=== PATIENT | female | born 1960 | race Caucasian/White ===

== ENCOUNTER 2016-10-30 10:59 | Outpatient (CLI) | payer BC | END 2016-10-30 11:00 | disposition home or self-care (01) | DX: R05 Cough (principal); R91.8 Other nonspecific abnormal finding of lung field ==

== ENCOUNTER 2016-11-10 12:38 | Outpatient (CLI) | payer BC | END 2016-11-10 12:39 | disposition home or self-care (01) | DX: J84.10 Pulmonary fibrosis, unspecified (principal); R91.8 Other nonspecific abnormal finding of lung field ==

== ENCOUNTER 2017-09-03 12:52 | Outpatient (CLI) | payer BC | END 2017-09-03 12:53 | disposition EMS.NT | LOC: EMS 12:52 | PROVIDERS: ATTEND Surgery | DX: R07.9 Chest pain, unspecified (principal) ==

== ENCOUNTER 2018-09-09 15:54 | Inpatient (IN) | payer BC ==
[2018-09-09 16:23] LABS: BILIRUBIN,URINE NEGATIVE (NEGATIVE); GLUCOSE, URINE (UA) NEGATIVE (NEGATIVE); KETONES,URINE (UA) NEGATIVE (NEGATIVE); LEUKOCYTE ESTERASE, URINE NEGATIVE (NEGATIVE); NITRITE,URINE NEGATIVE (NEGATIVE); OCCULT BLOOD,URINE SMALL (NEGATIVE); PROTEIN,URINE NEGATIVE (NEGATIVE); UROBILINOGEN,URINE 0.2 (NORMAL) E.U./dL (NORMAL)
[2018-09-09 16:30] LABS: CLARITY,URINE CLEAR (CLEAR)
[2018-09-09 16:31] LABS: BACTERIA,URINE Many /HPF (None Seen); SQUAMOUS EPITHELIAL CELL,UR MANY Squamous (<= Few)
[2018-09-09 16:53] LABS: BASOPHILS % (AUTO) 0.4 %; EOSINOPHILS % (AUTO) 0.4 %; HGB - HEMOGLOBIN 13.4 g/dL (12.0-16.0); LYMPHOCYTES # (AUTO) 1.3 10^3/uL (1.5-3.5); MEAN CORPUSCULAR HEMOGLOBIN 29.4 pg (27.0-31.0); MEAN CORPUSCULAR HGB CONC 33.1 g/dL (32.0-36.0); MEAN CORPUSCULAR VOLUME 88.8 fL (81.0-99.0); MEAN PLATELET VOLUME 7.8 fL (7.9-10.8); MONOCYTES # (AUTO) 0.8 10^3/uL (0.0-1.0); MONOCYTES % (AUTO) 7.6 %; NEUTROPHILS # (AUTO) 8.5 10^3/uL (1.5-6.6); NEUTROPHILS % (AUTO) 79.6 %; PLT - PLATELET COUNT 206 10^3/uL (130-450); RED BLOOD COUNT 4.56 10^6/uL (4.20-5.40); RED CELL DISTRIBUTION WIDTH 14.1 % (12.0-15.0); WHITE BLOOD COUNT 10.6 x10^3/uL (4.8-10.8)
--- NOTE | 2018-09-09 17:06 | ED Physician Documentation ---
PD HPI ABD PAIN - Stated complaint Stated Complaint: RUQ/RLQ PX & FEVER - Chief complaint Chief Complaint: Abd Pain - History obtained from History obtained from: Patient - History of Present Illness Timing - onset: Last night Timing - details: Abrupt onset, Still present, Intermittant Pain level max: 6 Pain level now: 6 Quality: Aching, Sharp Location: RUQ, RLQ Improved by: Laying still Worsened by: Moving Associated symptoms: Fever (Tactile fever last night), Nausea. No: Vomiting, Diarrhea, Constipation, Dysuria, Hematuria, Chest pain, Dizzy, Near syncope / syncope, Vaginal bleeding, Vaginal dc Similar symptoms before: Has not had sx before Recently seen: Not recently seen - Additional information Additional information: 58-year-old female with no past medical or surgical history here with complaint of right upper quadrant and right lower quadrant abdominal pain which started last night associated with tactile fever last night and nausea today. Patient stated it is worse when she bends over. Denies any trauma, travel or recent illness. Review of Systems Ten Systems: 10 systems reviewed and negative Constitutional: reports: Fever. denies: Chills, Myalgias Cardiac: denies: Chest pain / pressure Respiratory: denies: Dyspnea GI: reports: Abdominal Pain, Nausea. denies: Vomiting, Constipation, Diarrhea : denies: Dysuria, Frequency Skin: denies: Rash Musculoskeletal: denies: Back pain Neurologic: denies: Generalized weakness PD PAST MEDICAL HISTORY - Past Surgical History Past Surgical History: Yes - Present Medications Home Medications: Ambulatory Orders Medication Instructions Recorded Confirmed Progesterone,Micronized 200 mg PO 09/09/18 [Prometrium] - Allergies Allergies/Adverse Reactions: Allergies Allergy/AdvReac Type Severity Reaction Status Date / Time erythromycin lactobionate * Allergy Unknown Verified 09/09/18 16:00 [From Erythrocin] - Social History Does the pt smoke?: No Smoking Status: Never smoker Does the pt drink ETOH?: No Does the pt have substance abuse?: No - Immunizations Immunizations are current?: Yes PD ED PE NORMAL - Vitals Vital signs reviewed: Yes - General General: Alert and oriented X 3, No acute distress, Well developed/nourished - HEENT HEENT: EOMI, Moist mucous membranes - Neck Neck: Supple, no meningeal sign - Cardiac Cardiac: RRR, No murmur - Respiratory Respiratory: No respiratory distress, Clear bilaterally - Abdomen Abdomen: Normal bowel sounds, Soft, Non distended, Other (Mild tenderness to palpation of the right upper quadrant and right lower quadrant. Negative Chin's. Negative McBurney's.) - Back Back: No CVA TTP - Derm Derm: Warm and dry - Extremities Extremities: No deformity - Neuro Neuro: Alert and oriented X 3 - Psych Psych: Normal mood, Normal affect Results - Vitals Vitals: Vital Signs - 24 hr 09/09/18 15:57 Temperature 37.7 C H Heart Rate 99 Respiratory 20 Rate Blood Pressure 152/77 H O2 Saturation 99 Oxygen O2 Source Room air - Labs Labs: Laboratory Tests 09/09/18 09/09/18 09/09/18 16:08 16:47 16:47 WBC 10.6 RBC 4.56 Hgb 13.4 Hct 40.5 MCV 88.8 MCH 29.4 MCHC 33.1 RDW 14.1 Plt Count 206 MPV 7.8 L Neut # (Auto) 8.5 H Lymph # (Auto) 1.3 L Hinds # (Auto) 0.8 Eos # (Auto) 0.0 Baso # (Auto) 0.0 Absolute Nucleated RBC 0.00 Nucleated RBC % 0.0 Sodium 130 L Potassium 4.0 Chloride 100 L Carbon Dioxide 22 Anion Gap 8.0 BUN 8 Creatinine 0.7 Estimated GFR (MDRD) 87 L Glucose 100 Calcium 9.0 Total Bilirubin 1.1 H AST 18 ALT 15 Alkaline Phosphatase 37 L Total Protein 7.9 Albumin 4.3 Globulin 3.6 Albumin/Globulin Ratio 1.2 Lipase 24 Urine Color YELLOW Urine Clarity CLEAR Urine pH 7.0 Ur Specific [place] <=1.005 Urine Protein NEGATIVE Urine Glucose (UA) NEGATIVE Urine Ketones NEGATIVE Urine Occult Blood SMALL H Urine Nitrite NEGATIVE Urine Bilirubin NEGATIVE Urine Urobilinogen 0.2 (NORMAL) Ur Leukocyte Esterase NEGATIVE Urine RBC 6-10 H Urine WBC 4-5 Ur Squamous Epith Cells MANY Squamous H Urine Bacteria Many H Ur Microscopic Review INDICATED Urine Culture Comments NOT INDICATED PD MEDICAL DECISION MAKING - ED course Complexity details: reviewed results, re-evaluated patient (1919Patient inform of general surgeon consult who stated no surgery required at this time.), considered differential (Cholecystitis, cholelithiasis, appendicitis, UTI, muscle strain), d/w patient (1902Patient informed of test results including CAT scan results and agreed to plan of admission.), d/w PMD (963ase discussed with hospitalist . Inform of test results and general surgeon consult. She will admit the patient to [facility] d/w fashion consultant (Spoke to general surgeon energy conservation director . Case discussed including CT scan result. He stated this case will not require any surgical intervention but patient can be admitted for IV antibiotics and he can be consulted by the hospitalist.) Departure - Departure Disposition: 66 [facility] DC/Xfer Clinical Impression: Diverticulitis of gastrointestinal tract, Perforated bowel Abdominal pain Qualifiers: Abdominal location: right upper quadrant Qualified Code(s): R10.11 - Right upper quadrant pain Condition: Stable
[2018-09-09 17:10] LABS: ALBUMIN 4.3 g/dL (3.2-5.5); ALBUMIN/GLOBULIN RATIO 1.2 (1.0-2.2); BILIRUBIN,TOTAL 1.1 mg/dL (0.2-1.0); CREATININE 0.7 mg/dL (0.4-1.0); TOTAL PROTEIN 7.9 g/dL (6.7-8.2)
[2018-09-09] MEDS ORDERED: IOPAMIDOL-300 100 ML VIAL ONE (17:35)
[2018-09-09] MEDS ORDERED: IOPAMIDOL-300 100 ML VIAL IVP ONE (18:06)
--- NOTE | 2018-09-09 18:40 | CT Report ---
Reason: PAIN Procedure Date: 09/09/2018 Accession Number: [id number] / [id number] Procedure: CT - Abdomen/Pelvis W/ CPT Code: FULL RESULT: EXAM: CT ABDOMEN AND PELVIS WITH CONTRAST. EXAM DATE: 09/09/2018 05:53 PM. CLINICAL HISTORY: Right-sided abdominal pain and nausea since yesterday. COMPARISONS: None. TECHNIQUE: Routine helical CT imaging was performed through the abdomen and pelvis. IV contrast: 100 mL ISOVUE 300. Enteric contrast: No. Reconstructions: Coronal and sagittal. In accordance with CT protocol optimization, one or more of the following dose reduction techniques were utilized for this exam: automated exposure control, adjustment of mA and/or KV based on patient size, or use of iterative reconstructive technique. FINDINGS: Lung Bases: Unremarkable. Liver: Normal. No masses. Gallbladder/Bile Ducts: Unremarkable. Spleen: Normal. Pancreas: Normal. Adrenal Glands: Normal. Kidneys: Normal. No masses or hydronephrosis. Peritoneal Cavity/Bowel: Diverticula of the colon. Moderate wall thickening and several large inflamed diverticuli over an 8 cm segment involving the superior half of the ascending colon. Less than 1 cc free air seen in this region, sagittal image 66, coronal image 39. No extraluminal abscess. Marked amount of adjacent mesenteric and omental edema. Small amount of adjacent linear fluid. Large and small bowel normal caliber. The appendix is well visualized and normal. Pelvic Organs: Mildly enlarged uterus due to multiple leiomyomata. No free fluid nor adnexal mass lesions. No stones in the small caliber urinary bladder. Vasculature: No aneurysms or other significant abnormality. Bones: No significant abnormality. Other: None. IMPRESSION: 1. Abnormal ascending colon consistent with diverticulitis. Less than 1 cc of air adjacent to such indicating focal contained perforation. Full differential of the abnormal findings would also include colitis, pseudomembranous colitis, inflammatory bowel disease, ischemia, atypical for nonobstructing malignancy. 2. Enlarged leiomyomatous uterus. RADIA The above findings were discussed with Roxie Faustin by Dr. Marily Frey at 18:39 hrs on 09/09/18.
[2018-09-09] MEDS ORDERED: SODIUM CHLORIDE 0.9% 1,000 ML IV ONE (19:09)
[2018-09-09] MEDS ORDERED: PIPERACILLIN/TAZOBACTAM 4.5 GM in SODIUM CHLORIDE 0.9% MINIBAG 100 ML IV STA (19:09)
[2018-09-09] MEDS ORDERED: HYDROmorphone 0.5 MG/0.5 ML SYRINGE IVP PRN (19:48)
[2018-09-09] MEDS ORDERED: ONDANSETRON 4 MG/2 ML VIAL IVP PRN (19:48)
[2018-09-09] MEDS ORDERED: ONDANSETRON ODT 4 MG TABLET TL PRN (19:48)
[2018-09-09] MEDS ORDERED: SODIUM CHLORIDE FLUSH 0.9% 10 ML SYRINGE IVP PRN (19:48)
[2018-09-09] MEDS: SODIUM CHLORIDE 0.9% 1,000 ML IV SCH (21:00)
--- NOTE | 2018-09-09 22:53 | HISTORY & PHYSICAL EXAMINATION ---
Chief Complaint - Chief Complaint Chief Complaint: Abdominal Pain History of Present Illness - Admitted From Admitted From:: ER - History Obtained From Records Reviewed: Yes History obtained from: Patient Exam Limitations: None - History of Present Illness HPI Comment/Other: 58 yo female with no pmh presents with abdominal pain that started 1 day prior at 1800. Pain described as sharp pain in the Right Upper/Lower Quadrant and Right Flank. Pt states the pain was sudden onset and has been constant with exacerbation by bending over. Pt states her temperature was 102.4 last night with sustaining >102 today in her office. Patient states she has had one surgery at 28 for endometriosis, but has never experience similar abdominal pain. Patient states her last po was at 0800 today and had a normal bowel movement this morning. Pt states the pain started 1 day prior with resulting nausea. Patient denies vomiting, chest pain, cough, fever, recent illness, diarrhea, hematochezia, dysuria, hematemesis, change in urinary frequency, change in bowel movements. Pt does have recent travel to [facility] [address] abdomen reviewed with patient and she understands treatment plan. History - Past Medical History Cardiovascular: reports: None Respiratory: reports: None Neuro: reports: None (Pineal Gland Cyst), Other Endocrine/Autoimmune: reports: None GI: reports: None CREDIT ASSOCIATE: reports: Endometriosis (surgery at 28), Other ( with leiomyoma ) : reports: None HEENT: reports: None Psych: reports: None Musculoskeletal: reports: None Derm: reports: None MRSA Hx?: No - Past Surgical History Other past surgical history: laser ablation for endometriosis - Family & Social History Family History: Mother: Alive and Well, Father: Alive and Well, Diabetes, Type 2, Brother: , CAD Living arrangement: At home Living Situation: Alone Social History Notes: 58 yo female that lives on [address] [facility] [facility]. 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 She smokes socially 1 to 2 cigarettes a month, drinks socially and denies any illicit drug usage. - Substance History Use: Uses substance without health or social issues: Tobacco, Alcohol Abuse: Recurrent use of substance despite neg consequences: NONE Dependence: Experiences withdrawal or developed tolerances: NONE - POLST Patient has POLST: No POLST Status: Full Code Meds/Allgy - Home Medications Home Medications: Ambulatory Orders Medication Instructions Recorded Confirmed Progesterone,Micronized 200 mg PO 09/09/18 [Prometrium] - Allergies Allergies/Adverse Reactions: Allergies Allergy/AdvReac Type Severity Reaction Status Date / Time erythromycin lactobionate * Allergy Unknown Verified 09/09/18 16:00 [From Erythrocin] Review of Systems - Constitutional Constitutional: reports: Fever (102.4 noted at home). denies: Fatigue, Chills, Weakness - Eyes Eyes: denies: Pain, Blurred vision - Ears, Nose & Throat Ears, Nose & Throat: denies: Hearing loss, Tinnitus, Sore throat - Cardiovascular Cariovascular: reports: Lightheadedness (one episode at work while sitting 1 day prior that lasted a few seconds). denies: Irregular heart rate, Palpitations, Chest pain, Syncope - Respiratory Respiratory: denies: Cough, Sputum production, Wheezing, SOB at rest, SOB with exertion - Gastrointestinal Gastrointestinal: reports: Abdominal pain (RLQ, RUQ, Flank Pain), Nausea. denies: Abdominal distention, Constipation, Diarrhea, Change in bowel habits, Rectal bleeding, Black stools, Bloody stools, Vomiting, Bile emesis, Jatinder blood emesis, Coffee grounds emesis - Genitourinary Genitourinary: denies: Dysuria, Frequency, Urgency, Incontinence - Musculoskeletal Musculoskeletal: denies: Muscle pain, Back pain, Muscle aches - Integumentary Integumentary: denies: Rash - Neurological Neurological: denies: General weakness, Headache - Psychiatric Psychiatric: denies: Depression - Endocrine Endocrine: denies: Polyuria - Hematologic/Lymphatic Hematologic/Lymphatic: denies: Anemia, Bruising, Petechiae - All Other Systems All Other Systems: reports: Reviewed and negative Prior Level of Functionality: Pt is active and completes ADL. She does not require any ambulatory assistance. 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 She is and lives alone. She has a solid support system of friends and colleagues. She has numerous activities including animal communication. Exam - Vital Signs Reviewed Vital Signs: Yes Vital Signs: Vital Signs x48h Temp Pulse Pulse Resp BP BP Pulse Ox 09/09/18 20:35 37.6 C H 77 14 114/62 99 09/09/18 20:06 37.6 C H 90 18 120/69 96 09/09/18 15:57 37.7 C H 99 20 152/77 H 99 - Physical Exam General Appearance: positive: No acute distress, Alert Eyes Bilateral: positive: Normal inspection ENT: positive: ENT inspection nml Neck: positive: Nml inspection Respiratory: positive: Chest non-tender, No respiratory distress, Breath sounds nml, Wheezes, Rales Cardiovascular: positive: Regular rate & rhythm, No murmur, No gallop Peripheral Pulses: positive: 2+ Abdomen: positive: Nml bowel sounds, Tenderness (RUQ, RLQ, R Flank Pain). negative: Non-tender, No distention Rectal: negative: Black stool, Bloody stool Back: positive: Nml inspection Skin: positive: Color nml, No rash, Warm, Dry Extremities: positive: Non-tender, Full ROM, Nml appearance Neurologic/Psychiatric: positive: Oriented x3, Mood/affect nml Conclusion/Plan - Problem List (1) Diverticulitis of gastrointestinal tract Conclusion/Plan: CT Abdomen reveals: Abnormal ascending colon consistent with diverticulitis. Less than 1 cc of air adjacent to such indicating focal contained perforation. Full differential of the abnormal findings would also include colitis, pseudomembranous colitis, inflammatory bowel disease, ischemia, atypical for nonobstructing malignancy. Plan: NPO IVF Blood culture and daily labs including CBC Oxycodone for pain Pip/Tazo abx coverage with sensitivities based on culture (2) Perforated bowel Conclusion/Plan: CT Abdomen reveals: Abnormal ascending colon consistent with diverticulitis. Less than 1 cc of air adjacent to such indicating focal contained perforation. Full differential of the abnormal findings would also include colitis, pseudomembranous colitis, inflammatory bowel disease, ischemia, atypical for nonobstructing malignancy. Plan: Continue to monitor vitals, cbc, lactic acid and abdominal tenderness NPO and IVF Abx coverage with Pip/Tazo (3) Diffuse leiomyomatosis of uterus Conclusion/Plan: CT Abdomen and Pelvis: Enlarged leiomyomatous uterus. Pt has been followed with [facility] with progesterone treatment outpatient to control menorrhagia. Plan: Continue outpatient treatment Monitor CBC - Lab Results Lab results reviewed: Yes Fish Bones: 09/09/18 16:47 09/09/18 16:47 - Diagnostic Imaging Results Diagnostic Imaging Results: positive: Final report reviewed Diagnostic Imaging Results Comments: Final Report PT NAME: LONNIE DOUGHERTY MR#: [id number] REG ER/ED AGE: 58 CI DT/TM: 09/09/18 PCP: : 1960 ATT: SEX: F ORD: Roxie Faustin DO EXAM: [id number] CT/ABPEW ([id number]) Reason: PAIN Procedure Date: 09/09/2018 Accession Number: [id number] / [id number] Procedure: CT - Abdomen/Pelvis W/ CPT Code: FULL RESULT: EXAM: CT ABDOMEN AND PELVIS WITH CONTRAST. EXAM DATE: 09/09/2018 05:53 PM. CLINICAL HISTORY: Right-sided abdominal pain and nausea since yesterday. COMPARISONS: None. TECHNIQUE: Routine helical CT imaging was performed through the abdomen and pelvis. IV contrast: 100 mL ISOVUE 300. Enteric contrast: No. Reconstructions: Coronal and sagittal. In accordance with CT protocol optimization, one or more of the following dose reduction techniques were utilized for this exam: automated exposure control, adjustment of mA and/or KV based on patient size, or use of iterative reconstructive technique. FINDINGS: Lung Bases: Unremarkable. Liver: Normal. No masses. Gallbladder/Bile Ducts: Unremarkable. Spleen: Normal. Pancreas: Normal. Adrenal Glands: Normal. Kidneys: Normal. No masses or hydronephrosis. Peritoneal Cavity/Bowel: Diverticula of the colon. Moderate wall thickening and several large inflamed diverticuli over an 8 cm segment involving the superior half of the ascending colon. Less than 1 cc free air seen in this region, sagittal image 66, coronal image 39. No extraluminal abscess. Marked amount of adjacent mesenteric and omental edema. Small amount of adjacent linear fluid. Large and small bowel normal caliber. The appendix is well visualized and normal. Pelvic Organs: Mildly enlarged uterus due to multiple leiomyomata. No free fluid nor adnexal mass lesions. No stones in the small caliber urinary bladder. Vasculature: No aneurysms or other significant abnormality. Bones: No significant abnormality. Other: None. IMPRESSION: 1. Abnormal ascending colon consistent with diverticulitis. Less than 1 cc of air adjacent to such indicating focal contained perforation. Full differential of the abnormal findings would also include colitis, pseudomembranous colitis, inflammatory bowel disease, ischemia, atypical for nonobstructing malignancy. 2. Enlarged leiomyomatous uterus. RADIA The above findings were discussed with Roxie Faustin by Dr. Marily Frey at 18:39 hrs on 09/09/18. Clerk Supervisor: Reading Radiologist: Marily rFey MD Releasing Radiologist: Marily Frey MD Released Date Time: 09/09/181847 Report 47 cc: Roxie Faustin DO Principal Bender Machine Name: Marily Frey Provider ID: [id number] - EKG Results EKG Interpreted Independently: No Core Measures - Anticipated LOS I expect patient to be DC'd or transferred within 96 hours.: Yes - DVT/VTE - Prophylaxis VTE/DVT Device ordered at admit?: Yes - Stroke - Rehab Assessment Rehab services assessment to be ordered?: No - AMI - Statin at Admit Aspirin Prescribed on Admit: No
[2018-09-10] MEDS: SODIUM CHLORIDE FLUSH 0.9% 10 ML SYRINGE IVP SCH ×3 (03:09→17:44)
[2018-09-10] MEDS: PIPERACILLIN/TAZOBACTAM 3.375 GM in SODIUM CHLORIDE 0.9% MINIBAG 100 ML IV SCH ×4 (03:37→20:06)
[2018-09-10] MEDS: oxyCODONE 5 MG TABLET PO PRN ×3 (06:28→21:59)
[2018-09-10] MEDS: POLYETHYLENE GLYCOL 3350 17 GM PACKET PO SCH (09:37)
[2018-09-10] MEDS: ENOXAPARIN 40 MG/0.4 ML SYRINGE SUBQ SCH ×2 (09:37→09:50)
[2018-09-10] MEDS: SODIUM CHLORIDE 0.9% 1,000 ML IV SCH ×2 (09:37→20:06)
--- NOTE | 2018-09-10 12:45 | PROVIDER PROGRESS NOTE ---
Assessment/Plan - Problem List (1) Diverticulitis of gastrointestinal tract Assessment/Plan: CT of abd/pelvis showed Acending colon diverticulitis with multiple diverticuli. Slightly improved symptoms of abd pain, but still has tenderness, R>L. Continue iv hydration and Pip/Tazo iv antibiotic. Advance diet to clear liquids, if tolerated. Await blood cultures. Monitor BMP and CBC daily. (2) Perforated bowel Assessment/Plan: CT of abd/pelvis showed 1 cc of air surrounding the diverticulitis, consistent with a small perforation. Surgeon watching along with us, in case of need for surgery. (3) Diffuse leiomyomatosis of uterus Assessment/Plan: CT of abd/pelvis showed extensive leiomyomata. Stable currently. (4) Tobacco abuse Assessment/Plan: The patient uses 3-4 cigarettes/ month and declines a Nicotine patch. She also requested that we NOT SPEAK ABOUT HER SMOKING, WHILE any family or friends are in her room. - Current Meds Current Meds: Current Medications Generic Name Dose Route Start Last Admin Trade Name Freq PRN Reason Stop Dose Admin Enoxaparin Sodium 40 mg 09/10/18 09:00 09/10/18 09:50 Lovenox SUBQ 40 mg DAILY DMITRIY Administration Piperacillin Sod/Tazobactam 100 mls @ 200 mls/hr 09/10/18 02:00 09/10/18 10:20 Sod 3.375 gm/ Sodium Chloride IV Infused Q6H DMITRIY Infusion Sodium Chloride 1,000 mls @ 100 mls/hr 09/09/18 20:00 09/10/18 09:37 Normal Saline 0.9% IV 100 mls/hr .Q10H DMITRIY Administration Oxycodone HCl 5 mg 09/09/18 19:48 09/10/18 06:28 Roxicodone PO 5 mg Q4HR PRN Administration Pain 5 to 7 Polyethylene Glycol 17 gm 09/10/18 09:00 09/10/18 09:37 Miralax PO 17 gm DAILY DMITRIY Administration Sodium Chloride 10 ml 09/10/18 01:00 09/10/18 08:02 Normal Saline Flush 0.9% IVP Not Given 0100,0900,1700 DMITRIY - Lab Result Fish Bone Diagrams: 09/09/18 16:47 09/09/18 16:47 - Additional Planning My Orders: My Active Orders 09/10/18 CBC - COMP BLD CT W/AUTO DIFF [HEME] Urgent CMP [COMPREHENSIVE METABOLIC PANEL] [CHEM] Urgent MAGNESIUM [CHEM] Urgent 09/11/18 05:00 BMP - BASIC METABOLIC PANEL [CHEM] DAILYLAB CBC - COMP BLD CT W/AUTO DIFF [HEME] DAILYLAB 09/12/18 05:00 BMP - BASIC METABOLIC PANEL [CHEM] DAILYLAB CBC - COMP BLD CT W/AUTO DIFF [HEME] DAILYLAB 09/13/18 05:00 BMP - BASIC METABOLIC PANEL [CHEM] DAILYLAB CBC - COMP BLD CT W/AUTO DIFF [HEME] DAILYLAB Subjective - Subjective Patient Reports: Feeling Better, Resting Comfortably Objective Vital Signs: Vital Signs - 24 hr 09/09/18 09/09/18 09/09/18 15:57 20:06 20:35 Temperature 37.7 C H 37.6 C H 37.6 C H Heart Rate 99 90 Heart Rate [ 77 Brachial] Respiratory 20 18 14 Rate Blood Pressure 152/77 H 120/69 Blood Pressure 114/62 [Left Brachial artery] O2 Saturation 99 96 99 09/10/18 09/10/18 00:00 08:00 Temperature 36.7 C 36.8 C Heart Rate Heart Rate [ 66 69 Brachial] Respiratory 16 20 Rate Blood Pressure Blood Pressure 106/57 L 100/55 L [Left Brachial artery] O2 Saturation 97 96 Oxygen O2 Source Room air I&O (Last 24 Hrs): Intake and Output Totals x24h 09/08/18 09/09/18 09/10/18 23:59 23:59 23:59 Intake Total 1000 1560 Balance 1000 1560 General: Alert, Oriented x3 HEENT: Mucous membr. moist/pink Neck: Supple, No JVD Neuro: Alert, Non Focal Cardiovascular: Regular rate, No murmurs Respiratory: No respiratory distress, Breath sounds nml Abdomen: Normal bowel sounds, Other (Tender to light palpation in mid and R quadrants) Extremities: No edema - Results Results: Laboratory Results WBC 10.6 x10^3/uL (4.8-10.8) 09/09/18 16:47 RBC 4.56 10^6/uL (4.20-5.40) 09/09/18 16:47 Hgb 13.4 g/dL (12.0-16.0) 09/09/18 16:47 Hct 40.5 % (37.0-47.0) 09/09/18 16:47 MCV 88.8 fL (81.0-99.0) 09/09/18 16:47 MCH 29.4 pg (27.0-31.0) 09/09/18 16:47 MCHC 33.1 g/dL (32.0-36.0) 09/09/18 16:47 RDW 14.1 % (12.0-15.0) 09/09/18 16:47 Plt Count 206 10^3/uL (130-450) 09/09/18 16:47 MPV 7.8 fL (7.9-10.8) L 09/09/18 16:47 Neut # (Auto) 8.5 10^3/uL (1.5-6.6) H 09/09/18 16:47 Lymph # (Auto) 1.3 10^3/uL (1.5-3.5) L 09/09/18 16:47 [place] # (Auto) 0.8 10^3/uL (0.0-1.0) 09/09/18 16:47 Eos # (Auto) 0.0 10^3/uL (0.0-0.7) 09/09/18 16:47 Baso # (Auto) 0.0 10^3/uL (0.0-0.1) 09/09/18 16:47 Absolute Nucleated RBC 0.00 x10^3/uL 09/09/18 16:47 Nucleated RBC % 0.0 /100WBC 09/09/18 16:47 Sodium 130 mmol/L (135-145) L 09/09/18 16:47 Potassium 4.0 mmol/L (3.5-5.0) 09/09/18 16:47 Chloride 100 mmol/L (101-111) L 09/09/18 16:47 Carbon Dioxide 22 mmol/L (21-32) 09/09/18 16:47 Anion Gap 8.0 (6-13) 09/09/18 16:47 BUN 8 mg/dL (6-20) 09/09/18 16:47 Creatinine 0.7 mg/dL (0.4-1.0) 09/09/18 16:47 Estimated GFR (MDRD) 87 (>89) L 09/09/18 16:47 Glucose 100 mg/dL (70-100) 09/09/18 16:47 Calcium 9.0 mg/dL (8.5-10.3) 09/09/18 16:47 Total Bilirubin 1.1 mg/dL (0.2-1.0) H 09/09/18 16:47 AST 18 IU/L (10-42) 09/09/18 16:47 ALT 15 IU/L (10-60) 09/09/18 16:47 Alkaline Phosphatase 37 IU/L (42-121) L 09/09/18 16:47 Total Protein 7.9 g/dL (6.7-8.2) 09/09/18 16:47 Albumin 4.3 g/dL (3.2-5.5) 09/09/18 16:47 Globulin 3.6 g/dL (2.1-4.2) 09/09/18 16:47 Albumin/Globulin Ratio 1.2 (1.0-2.2) 09/09/18 16:47 Lipase 24 U/L (22-51) 09/09/18 16:47 Urine Color YELLOW 09/09/18 16:08 Urine Clarity CLEAR (CLEAR) 09/09/18 16:08 Urine pH 7.0 PH (5.0-7.5) 09/09/18 16:08 Ur Specific [place] <=1.005 (1.002-1.030) 09/09/18 16:08 Urine Protein NEGATIVE mg/dL (NEGATIVE) 09/09/18 16:08 Urine Glucose (UA) NEGATIVE mg/dL (NEGATIVE) 09/09/18 16:08 Urine Ketones NEGATIVE mg/dL (NEGATIVE) 09/09/18 16:08 Urine Occult Blood SMALL (NEGATIVE) H 09/09/18 16:08 Urine Nitrite NEGATIVE (NEGATIVE) 09/09/18 16:08 Urine Bilirubin NEGATIVE (NEGATIVE) 09/09/18 16:08 Urine Urobilinogen 0.2 (NORMAL) E.U./dL (NORMAL) 09/09/18 16:08 Ur Leukocyte Esterase NEGATIVE (NEGATIVE) 09/09/18 16:08 Urine RBC 6-10 /HPF (0-5) H 09/09/18 16:08 Urine WBC 4-5 /HPF (0-5) 09/09/18 16:08 Ur Squamous Epith Cells MANY Squamous (<= Few) H 09/09/18 16:08 Urine Bacteria Many /HPF (None Seen) H 09/09/18 16:08 Ur Microscopic Review INDICATED 09/09/18 16:08 Urine Culture Comments NOT INDICATED 09/09/18 16:08 ABX Reporting Has patient been on IV antibiotics over the past 48 hours?: Yes
--- NOTE | 2018-09-10 12:48 | CONSULTATION NOTE ---
Referring Provider Consult Date: 09/10/18 Chief Complaint - Chief Complaint Chief Complaint: abdominal pain History of Present Illness - History of Present Illness HPI Comment/Other: 58 yo woman presented to the ER last night with abdominal pain and was found to have diverticulitis with a possible contained perforation. She was admitted on bowel rest and IV Abx. Today she feels improved with less pain and no general symptoms. History - Past Medical History Cardiovascular: reports: None Respiratory: reports: None Neuro: reports: None (Pineal Gland Cyst), Other Endocrine/Autoimmune: reports: None GI: reports: None [employer]: reports: Endometriosis (surgery at 28), Other ( with leiomyoma ) : reports: None HEENT: reports: None Psych: reports: None Musculoskeletal: reports: None Derm: reports: None MRSA Hx?: No - Past Surgical History Other past surgical history: laser ablation for endometriosis - Family & Social History Family History: Mother: Alive and Well, Father: Alive and Well, Diabetes, Type 2, Brother: , CAD Living arrangement: At home Living Situation: Alone Social History Notes: 58 yo female that lives on [address] 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 She smokes socially 1 to 2 cigarettes a month, drinks socially and denies any illicit drug usage. - Substance History Use: Uses substance without health or social issues: Tobacco, Alcohol Abuse: Recurrent use of substance despite neg consequences: NONE Dependence: Experiences withdrawal or developed tolerances: NONE - POLST Patient has POLST: No POLST Status: Full Code Meds/Allgy - Home Medications Home Medications: Ambulatory Orders Medication Instructions Recorded Confirmed Progesterone,Micronized 200 mg PO QPM 09/09/18 09/10/18 [Prometrium] - Allergies Allergies/Adverse Reactions: Allergies Allergy/AdvReac Type Severity Reaction Status Date / Time erythromycin lactobionate * Allergy Unknown Verified 09/09/18 16:00 [From Erythrocin] Review of Systems - Gastrointestinal Gastrointestinal: reports: Abdominal pain Exam - Vital Signs Vital Signs: Vital Signs x48h Temp Pulse Resp BP Pulse Ox 09/10/18 08:00 36.8 C 69 20 100/55 L 96 - Physical Exam General Appearance: positive: No acute distress Eyes Bilateral: positive: Normal inspection ENT: positive: ENT inspection nml Neck: positive: Nml inspection Respiratory: positive: Chest non-tender Cardiovascular: positive: Regular rate & rhythm Abdomen: positive: Tenderness (RUQ) Back: positive: Nml inspection Skin: positive: Color nml Extremities: positive: Non-tender Neurologic/Psychiatric: positive: Oriented x3 Conclusion/Plan - Diagnosis Diagnosis: diverticulitis - Plan Plan: Pt appears to be responding well to non-operative management. Plan to continue antibiotics and bowel rest and monitor progression. - Lab Results Lab results reviewed: Yes Fish Bones: 09/09/18 16:47 09/09/18 16:47
[2018-09-10 13:07] LABS: BASOPHILS # (AUTO) 0.1 10^3/uL (0.0-0.1); BASOPHILS % (AUTO) 0.6 %; EOSINOPHILS # (AUTO) 0.1 10^3/uL (0.0-0.7); EOSINOPHILS % (AUTO) 0.9 %; HGB - HEMOGLOBIN 11.8 g/dL (12.0-16.0); LYMPHOCYTES # (AUTO) 1.4 10^3/uL (1.5-3.5); LYMPHOCYTES % (AUTO) 16.5 %; MEAN CORPUSCULAR HEMOGLOBIN 30.4 pg (27.0-31.0); MEAN CORPUSCULAR HGB CONC 34.6 g/dL (32.0-36.0); MEAN CORPUSCULAR VOLUME 87.8 fL (81.0-99.0); MEAN PLATELET VOLUME 7.5 fL (7.9-10.8); MONOCYTES # (AUTO) 0.6 10^3/uL (0.0-1.0); MONOCYTES % (AUTO) 7.5 %; NEUTROPHILS # (AUTO) 6.3 10^3/uL (1.5-6.6); NEUTROPHILS % (AUTO) 74.5 %; PLT - PLATELET COUNT 173 10^3/uL (130-450); RED BLOOD COUNT 3.88 10^6/uL (4.20-5.40); RED CELL DISTRIBUTION WIDTH 13.7 % (12.0-15.0); WHITE BLOOD COUNT 8.5 x10^3/uL (4.8-10.8)
[2018-09-10 13:15] LABS: ALBUMIN 3.5 g/dL (3.2-5.5); ALBUMIN/GLOBULIN RATIO 1.2 (1.0-2.2); BILIRUBIN,TOTAL 0.8 mg/dL (0.2-1.0); CALCIUM 7.9 mg/dL (8.5-10.3); CREATININE 0.7 mg/dL (0.4-1.0); TOTAL PROTEIN 6.5 g/dL (6.7-8.2)
[2018-09-10] MEDS: CALCIUM CARBONATE CHEW 500 MG TABLET PO SCH (20:06)
[2018-09-11] MEDS: SODIUM CHLORIDE FLUSH 0.9% 10 ML SYRINGE IVP SCH ×4 (00:34→17:08)
[2018-09-11] MEDS: PIPERACILLIN/TAZOBACTAM 3.375 GM in SODIUM CHLORIDE 0.9% MINIBAG 100 ML IV SCH ×4 (02:37→19:49)
[2018-09-11] MEDS: oxyCODONE 5 MG TABLET PO PRN ×2 (02:37→19:48)
[2018-09-11 05:22] LABS: BASOPHILS % (AUTO) 0.6 %; EOSINOPHILS # (AUTO) 0.2 10^3/uL (0.0-0.7); EOSINOPHILS % (AUTO) 2.7 %; HGB - HEMOGLOBIN 11.1 g/dL (12.0-16.0); LYMPHOCYTES # (AUTO) 1.7 10^3/uL (1.5-3.5); LYMPHOCYTES % (AUTO) 27.7 %; MEAN CORPUSCULAR HGB CONC 33.3 g/dL (32.0-36.0); MEAN CORPUSCULAR VOLUME 90.2 fL (81.0-99.0); MEAN PLATELET VOLUME 7.9 fL (7.9-10.8); MONOCYTES # (AUTO) 0.6 10^3/uL (0.0-1.0); MONOCYTES % (AUTO) 9.3 %; NEUTROPHILS # (AUTO) 3.7 10^3/uL (1.5-6.6); NEUTROPHILS % (AUTO) 59.7 %; PLT - PLATELET COUNT 158 10^3/uL (130-450); RED BLOOD COUNT 3.69 10^6/uL (4.20-5.40); RED CELL DISTRIBUTION WIDTH 13.9 % (12.0-15.0); WHITE BLOOD COUNT 6.3 x10^3/uL (4.8-10.8)
[2018-09-11 05:27] LABS: CALCIUM 7.7 mg/dL (8.5-10.3); CREATININE 0.6 mg/dL (0.4-1.0)
[2018-09-11] MEDS: SODIUM CHLORIDE 0.9% 1,000 ML IV SCH ×3 (06:08→22:43)
--- NOTE | 2018-09-11 08:51 | PROVIDER PROGRESS NOTE ---
Subjective - Prog Note Date Prog Note Date: 09/11/18 Prog Note Time: 08:49 - Subjective Pt reports feeling: Improved (Pt reports pain only present with cough or hiccup. Tolerating regular diet.) Objective - Vital Signs/Intake & Output Vital Signs: Vital Signs x48h Temp Pulse Resp BP Pulse Ox 09/11/18 08:00 37.1 C 65 20 146/77 H 95 Intake & Output: Intake & Output 09/08/18 09/09/18 09/10/18 09/11/18 23:59 23:59 23:59 23:59 Intake Total 1000 4008.333 811.667 Balance 1000 4008.333 811.667 - Objective General Appearance: positive: No acute distress Eyes Bilateral: positive: Normal inspection ENT: positive: ENT inspection nml Neck: positive: Nml inspection Respiratory: positive: Chest non-tender Cardiovascular: positive: Regular rate & rhythm Abdomen: positive: Non-tender Back: positive: Nml inspection Skin: positive: Color nml Extremities: positive: Non-tender Neurologic/Psychiatric: positive: Oriented x3 - Lab Results Fish Bones: 09/11/18 04:55 09/11/18 04:55 Other Labs: Lab Results x24hrs 09/11/18 09/11/18 09/10/18 Range/Units 04:55 04:55 13:00 WBC 6.3 (4.8-10.8) x10^3/uL RBC 3.69 L (4.20-5.40) 10^6/uL Hgb 11.1 L (12.0-16.0) g/dL Hct 33.3 L (37.0-47.0) % MCV 90.2 (81.0-99.0) fL MCH 30.0 (27.0-31.0) pg MCHC 33.3 (32.0-36.0) g/dL RDW 13.9 (12.0-15.0) % Plt Count 158 (130-450) 10^3/uL MPV 7.9 (7.9-10.8) fL Neut # (Auto) 3.7 (1.5-6.6) 10^3/uL Lymph # (Auto) 1.7 (1.5-3.5) 10^3/uL [place] # (Auto) 0.6 (0.0-1.0) 10^3/uL Eos # (Auto) 0.2 (0.0-0.7) 10^3/uL Baso # (Auto) 0.0 (0.0-0.1) 10^3/uL Absolute Nucleated RBC 0.00 x10^3/uL Nucleated RBC % 0.0 /100WBC Sodium 136 137 (135-145) mmol/L Potassium 3.9 3.6 (3.5-5.0) mmol/L Chloride 108 109 (101-111) mmol/L Carbon Dioxide 22 21 (21-32) mmol/L Anion Gap 6.0 7.0 (6-13) BUN 5 L 7 (6-20) mg/dL Creatinine 0.6 0.7 (0.4-1.0) mg/dL Estimated GFR (MDRD) 103 87 L (>89) Glucose 102 H 151 H (70-100) mg/dL Calcium 7.7 L 7.9 L (8.5-10.3) mg/dL Magnesium 2.0 (1.7-2.8) mg/dL Total Bilirubin 0.8 (0.2-1.0) mg/dL AST 13 (10-42) IU/L ALT 11 (10-60) IU/L Alkaline Phosphatase 33 L (42-121) IU/L Total Protein 6.5 L (6.7-8.2) g/dL Albumin 3.5 (3.2-5.5) g/dL Globulin 3.0 (2.1-4.2) g/dL Albumin/Globulin Ratio 1.2 (1.0-2.2) 09/10/18 Range/Units 13:00 WBC 8.5 (4.8-10.8) x10^3/uL RBC 3.88 L (4.20-5.40) 10^6/uL Hgb 11.8 L (12.0-16.0) g/dL Hct 34.1 L (37.0-47.0) % MCV 87.8 (81.0-99.0) fL MCH 30.4 (27.0-31.0) pg MCHC 34.6 (32.0-36.0) g/dL RDW 13.7 (12.0-15.0) % Plt Count 173 (130-450) 10^3/uL MPV 7.5 L (7.9-10.8) fL Neut # (Auto) 6.3 (1.5-6.6) 10^3/uL Lymph # (Auto) 1.4 L (1.5-3.5) 10^3/uL [place] # (Auto) 0.6 (0.0-1.0) 10^3/uL Eos # (Auto) 0.1 (0.0-0.7) 10^3/uL Baso # (Auto) 0.1 (0.0-0.1) 10^3/uL Absolute Nucleated RBC 0.00 x10^3/uL Nucleated RBC % 0.0 /100WBC Sodium (135-145) mmol/L Potassium (3.5-5.0) mmol/L Chloride (101-111) mmol/L Carbon Dioxide (21-32) mmol/L Anion Gap (6-13) BUN (6-20) mg/dL Creatinine (0.4-1.0) mg/dL Estimated GFR (MDRD) (>89) Glucose (70-100) mg/dL Calcium (8.5-10.3) mg/dL Magnesium (1.7-2.8) mg/dL Total Bilirubin (0.2-1.0) mg/dL AST (10-42) IU/L ALT (10-60) IU/L Alkaline Phosphatase (42-121) IU/L Total Protein (6.7-8.2) g/dL Albumin (3.2-5.5) g/dL Globulin (2.1-4.2) g/dL Albumin/Globulin Ratio (1.0-2.2) Assessment/Plan - Problem List (1) Diverticulitis of gastrointestinal tract Impression: Pt continues to improve. Plan for follow up in our clinic for colonoscopy about 1 month after discharge.
[2018-09-11] MEDS: ENOXAPARIN 40 MG/0.4 ML SYRINGE SUBQ SCH (08:53)
[2018-09-11] MEDS: CALCIUM CARBONATE CHEW 500 MG TABLET PO SCH ×2 (08:53→19:49)
[2018-09-11] MEDS: POLYETHYLENE GLYCOL 3350 17 GM PACKET PO SCH (08:53)
--- NOTE | 2018-09-11 11:29 | PROVIDER PROGRESS NOTE ---
Assessment/Plan - Problem List (1) Diverticulitis of colon with perforation Assessment/Plan: CT of abd/pelvis showed Acending colon diverticulitis with multiple diverticuli. CT of abd/pelvis showed 1 cc of air surrounding the diverticulitis, consistent with a small perforation. Appears to be a contained perforation Surgery following and recommend continued medical management with follow up colonoscopy in 1 month Abdominal pain is controlled with pain medication but patient kiln furniture saw tender Patients WBC is normal and no fevers Continue iv hydration and Pip/Tazo iv antibiotic. Advanced diet to soft and patient is tolerating. Monitor BMP and CBC daily. (2) Diffuse leiomyomatosis of uterus Assessment/Plan: CT of abd/pelvis showed extensive leiomyomata. This is a benign condition Stable currently. (3) Tobacco abuse Assessment/Plan: The patient uses 3-4 cigarettes/ month and declines a Nicotine patch. She also requested that we NOT SPEAK ABOUT HER SMOKING, WHILE any family or friends are in her room. (4) Hypocalcemia. Replace with TUMS as diet is advanced. - Current Meds Current Meds: Current Medications Generic Name Dose Route Start Last Admin Trade Name Freq PRN Reason Stop Dose Admin Calcium Carbonate/Glycine 500 mg 09/10/18 21:00 09/11/18 08:53 Tums PO 500 mg BID DMITRIY Administration Enoxaparin Sodium 40 mg 09/10/18 09:00 09/11/18 08:53 Lovenox SUBQ Not Given DAILY DMITRIY Hydromorphone HCl 0.5 mg 09/09/18 19:48 09/11/18 06:09 Dilaudid Inj Syringe IVP 0.5 mg Q2H PRN Administration Pain 8 to 10 Piperacillin Sod/Tazobactam 100 mls @ 200 mls/hr 09/10/18 02:00 09/11/18 09:23 Sod 3.375 gm/ Sodium Chloride IV Infused Q6H DMITRIY Infusion Sodium Chloride 1,000 mls @ 100 mls/hr 09/09/18 20:00 09/11/18 10:46 Normal Saline 0.9% IV 100 mls/hr .Q10H DMITRIY Infusion Ondansetron HCl 4 mg 09/09/18 19:48 09/11/18 06:13 Zofran Inj IVP 4 mg Q6HR PRN Administration Nausea / Vomiting Oxycodone HCl 5 mg 09/09/18 19:48 09/11/18 02:37 Roxicodone PO 5 mg Q4HR PRN Administration Pain 5 to 7 Polyethylene Glycol 17 gm 09/10/18 09:00 09/11/18 08:53 Miralax PO 17 gm DAILY DMITRIY Administration Sodium Chloride 10 ml 09/10/18 01:00 09/11/18 07:52 Normal Saline Flush 0.9% IVP Not Given 0100,0900,1700 DMITRIY - Lab Result Lab results reviewed: Yes Fish Bone Diagrams: 09/11/18 04:55 09/11/18 04:55 - Diagnostic Imaging Results Diagnostic Imaging Results: Final report reviewed - Additional Planning Condition/Complexity: Guarded My Orders: My Active Orders 09/11/18 17:00 Saccharomyces Boulardii [Florastor] 250 mg PO BIDWM Consult/Specialty: Surgery Plan Discussed with:: Patient Time Spent: 31-60 minutes Subjective - Subjective Patient Reports: Abdominal Pain (Better with pain medication but when medication wears off patient still in pain), Nausea (Improved able to tolerate food this am) Nursing Reports: No Complaints Objective Vital Signs: Vital Signs - 24 hr 09/10/18 09/11/18 09/11/18 16:00 00:00 08:00 Temperature 37.0 C 36.7 C 37.1 C Heart Rate [ 67 72 65 Brachial] Respiratory 19 18 20 Rate Blood Pressure 118/64 107/60 146/77 H [Left Brachial artery] O2 Saturation 97 95 95 Oxygen O2 Source Room air I&O (Last 24 Hrs): Intake and Output Totals x24h 09/09/18 09/10/18 09/11/18 23:59 23:59 23:59 Intake Total 1000 4008.333 1555.001 Balance 1000 4008.333 1555.001 General: Alert, Oriented x3, Cooperative, No acute distress HEENT: Atraumatic, PERRLA, EOMI, Mucous membr. moist/pink Neck: Supple, No JVD, No thyromegaly, +2 carotid pulse wo bruit, No LAD Lymphatic: no adenopathy Neuro: Alert, Non Focal, CN 2-12 Grossly Intact, Oriented Times 3 Cardiovascular: Regular rate, Normal S1, Normal S2, No murmurs Respiratory: Chest non-tender, No respiratory distress, Breath sounds nml Abdomen: Normal bowel sounds, Soft, Other (Tenderness right mid abdomen is the worst area of pain) Extremities: No clubbing, No cyanosis, No edema, Normal pulses Skin: No rashes, No breakdown - Results Results: Laboratory Results WBC 6.3 x10^3/uL (4.8-10.8) 09/11/18 04:55 RBC 3.69 10^6/uL (4.20-5.40) L 09/11/18 04:55 Hgb 11.1 g/dL (12.0-16.0) L 09/11/18 04:55 Hct 33.3 % (37.0-47.0) L 09/11/18 04:55 MCV 90.2 fL (81.0-99.0) 09/11/18 04:55 MCH 30.0 pg (27.0-31.0) 09/11/18 04:55 MCHC 33.3 g/dL (32.0-36.0) 09/11/18 04:55 RDW 13.9 % (12.0-15.0) 09/11/18 04:55 Plt Count 158 10^3/uL (130-450) 09/11/18 04:55 MPV 7.9 fL (7.9-10.8) 09/11/18 04:55 Neut # (Auto) 3.7 10^3/uL (1.5-6.6) 09/11/18 04:55 Lymph # (Auto) 1.7 10^3/uL (1.5-3.5) 09/11/18 04:55 [place] # (Auto) 0.6 10^3/uL (0.0-1.0) 09/11/18 04:55 Eos # (Auto) 0.2 10^3/uL (0.0-0.7) 09/11/18 04:55 Baso # (Auto) 0.0 10^3/uL (0.0-0.1) 09/11/18 04:55 Absolute Nucleated RBC 0.00 x10^3/uL 09/11/18 04:55 Nucleated RBC % 0.0 /100WBC 09/11/18 04:55 Sodium 136 mmol/L (135-145) 09/11/18 04:55 Potassium 3.9 mmol/L (3.5-5.0) 09/11/18 04:55 Chloride 108 mmol/L (101-111) 09/11/18 04:55 Carbon Dioxide 22 mmol/L (21-32) 09/11/18 04:55 Anion Gap 6.0 (6-13) 09/11/18 04:55 BUN 5 mg/dL (6-20) L 09/11/18 04:55 Creatinine 0.6 mg/dL (0.4-1.0) 09/11/18 04:55 Estimated GFR (MDRD) 103 (>89) 09/11/18 04:55 Glucose 102 mg/dL (70-100) H 09/11/18 04:55 Calcium 7.7 mg/dL (8.5-10.3) L 09/11/18 04:55 Magnesium 2.0 mg/dL (1.7-2.8) 09/10/18 13:00 Total Bilirubin 0.8 mg/dL (0.2-1.0) 09/10/18 13:00 AST 13 IU/L (10-42) 09/10/18 13:00 ALT 11 IU/L (10-60) 09/10/18 13:00 Alkaline Phosphatase 33 IU/L (42-121) L 09/10/18 13:00 Total Protein 6.5 g/dL (6.7-8.2) L 09/10/18 13:00 Albumin 3.5 g/dL (3.2-5.5) 09/10/18 13:00 Globulin 3.0 g/dL (2.1-4.2) 09/10/18 13:00 Albumin/Globulin Ratio 1.2 (1.0-2.2) 09/10/18 13:00 Lipase 24 U/L (22-51) 09/09/18 16:47 Urine Color YELLOW 09/09/18 16:08 Urine Clarity CLEAR (CLEAR) 09/09/18 16:08 Urine pH 7.0 PH (5.0-7.5) 09/09/18 16:08 Ur Specific [place] <=1.005 (1.002-1.030) 09/09/18 16:08 Urine Protein NEGATIVE mg/dL (NEGATIVE) 09/09/18 16:08 Urine Glucose (UA) NEGATIVE mg/dL (NEGATIVE) 09/09/18 16:08 Urine Ketones NEGATIVE mg/dL (NEGATIVE) 09/09/18 16:08 Urine Occult Blood SMALL (NEGATIVE) H 09/09/18 16:08 Urine Nitrite NEGATIVE (NEGATIVE) 09/09/18 16:08 Urine Bilirubin NEGATIVE (NEGATIVE) 09/09/18 16:08 Urine Urobilinogen 0.2 (NORMAL) E.U./dL (NORMAL) 09/09/18 16:08 Ur Leukocyte Esterase NEGATIVE (NEGATIVE) 09/09/18 16:08 Urine RBC 6-10 /HPF (0-5) H 09/09/18 16:08 Urine WBC 4-5 /HPF (0-5) 09/09/18 16:08 Ur Squamous Epith Cells MANY Squamous (<= Few) H 09/09/18 16:08 Urine Bacteria Many /HPF (None Seen) H 09/09/18 16:08 Ur Microscopic Review INDICATED 09/09/18 16:08 Urine Culture Comments NOT INDICATED 09/09/18 16:08 ABX Reporting Has patient been on IV antibiotics over the past 48 hours?: Yes Current Medications - Current Medications Current Medications: Active Medications Generic Name Dose Route Start Last Admin Trade Name Freq PRN Reason Stop Dose Admin Calcium Carbonate/Glycine 500 mg 09/10/18 21:00 09/11/18 08:53 Tums PO 500 mg BID DMITRIY Administration Enoxaparin Sodium 40 mg 09/10/18 09:00 09/11/18 08:53 Lovenox SUBQ Not Given DAILY DMITRIY Hydromorphone HCl 0.5 mg 09/09/18 19:48 09/11/18 06:09 Dilaudid Inj Syringe IVP 0.5 mg Q2H PRN Administration Pain 8 to 10 Piperacillin Sod/Tazobactam 100 mls @ 200 mls/hr 09/10/18 02:00 09/11/18 09:23 Sod 3.375 gm/ Sodium Chloride IV Infused Q6H DMITRIY Infusion Sodium Chloride 1,000 mls @ 100 mls/hr 09/09/18 20:00 09/11/18 10:46 Normal Saline 0.9% IV 100 mls/hr .Q10H DMITRIY Infusion Ondansetron HCl 4 mg 09/09/18 19:48 09/11/18 06:13 Zofran Inj IVP 4 mg Q6HR PRN Administration Nausea / Vomiting Ondansetron HCl 4 mg 09/09/18 19:48 Zofran Odt TL Q6HR PRN Nausea / Vomiting Oxycodone HCl 5 mg 09/09/18 19:48 09/11/18 02:37 Roxicodone PO 5 mg Q4HR PRN Administration Pain 5 to 7 Polyethylene Glycol 17 gm 09/10/18 09:00 09/11/18 08:53 Miralax PO 17 gm DAILY DMITRIY Administration Saccharomyces Boulardii 250 mg 09/11/18 17:00 Florastor PO BIDWM [facility] Sodium Chloride 10 ml 09/09/18 19:48 Normal Saline Flush 0.9% IVP PRN PRN NEEDED PER PROVIDER ORDERS Sodium Chloride 10 ml 09/10/18 01:00 09/11/18 07:52 Normal Saline Flush 0.9% IVP Not Given 0100,0900,1700 [facility] Progesterone,Micronized [Prometrium] 200 mg PO QPM 09/09/18
--- NOTE | 2018-09-11 15:27 | Discharge Plan ---
Discharge Plan Disposition: Home, Self Care Condition: Good Prescriptions: oxyCODONE [Roxicodone] 5 mg PO Q4HR PRN #30 tablet PRN Reason: Pain 5 to 7 Ciprofloxacin HCl [Cipro] 500 mg PO BID #20 tablet Metronidazole [Flagyl] 500 mg PO QID #40 tablet Saccharomyces Boulardii [Florastor] 250 mg PO BID #20 capsule Diet: Soft Activity Restrictions: Go back to work after Holiday Shower Restrictions: No Driving Restrictions: No Weight Bearing: Full Weight Instruction Topics: Diverticulosis Diverticulitis Additional Instructions or Follow Up instructions: Your admitted to our hospital with diverticulitis of the right colon with a small amount of perforation. You were treated here with IV antibiotics, IV fluids and pain medication. You were seen by our surgeon who did not feel that you needed any surgical intervention. You are treated with IV antibiotics for 4 days while you were hospitalized. You will need another 10 days of oral antibiotics to complete treatment for diverticulitis. He will also need to follow-up within a month at the surgical clinic for a colonoscopy. Please call surgical clinic for an appointment. You should continue on a soft diet at least while you are taking antibiotics. If you do have worsening abdominal pain, fever or increasing nausea and vomiting I recommend that you come back to the emergency department. You do not need a repeat CT scan at this point unless you have worsening symptoms. No Smoking: If you smoke, Please STOP! Call for help. Follow-up with: Niesha Tubbs ARNP [Credentialed Staff Provider] - Bernard Tomas MD [Provider Admit Priv/Credential] -
[2018-09-11] MEDS: SACCHAROMYCES BOULARDII 250 MG CAPSULE PO SCH (17:08)
[2018-09-12] MEDS: oxyCODONE 5 MG TABLET PO PRN (01:57)
[2018-09-12] MEDS: PIPERACILLIN/TAZOBACTAM 3.375 GM in SODIUM CHLORIDE 0.9% MINIBAG 100 ML IV SCH ×2 (01:58→08:11)
[2018-09-12] MEDS: SODIUM CHLORIDE FLUSH 0.9% 10 ML SYRINGE IVP SCH ×2 (02:28→08:11)
[2018-09-12] MEDS: SODIUM CHLORIDE 0.9% 1,000 ML IV SCH (05:08)
[2018-09-12 05:30] LABS: BASOPHILS % (AUTO) 0.6 %; EOSINOPHILS # (AUTO) 0.2 10^3/uL (0.0-0.7); EOSINOPHILS % (AUTO) 3.2 %; LYMPHOCYTES # (AUTO) 1.6 10^3/uL (1.5-3.5); LYMPHOCYTES % (AUTO) 26.8 %; MEAN CORPUSCULAR HEMOGLOBIN 29.8 pg (27.0-31.0); MEAN CORPUSCULAR HGB CONC 33.2 g/dL (32.0-36.0); MEAN CORPUSCULAR VOLUME 89.7 fL (81.0-99.0); MEAN PLATELET VOLUME 8.1 fL (7.9-10.8); MONOCYTES # (AUTO) 0.4 10^3/uL (0.0-1.0); MONOCYTES % (AUTO) 7.6 %; NEUTROPHILS # (AUTO) 3.6 10^3/uL (1.5-6.6); NEUTROPHILS % (AUTO) 61.8 %; PLT - PLATELET COUNT 175 10^3/uL (130-450); RED CELL DISTRIBUTION WIDTH 13.6 % (12.0-15.0); WHITE BLOOD COUNT 5.8 x10^3/uL (4.8-10.8)
[2018-09-12 05:36] LABS: CALCIUM 8.3 mg/dL (8.5-10.3); CREATININE 0.6 mg/dL (0.4-1.0)
[2018-09-12] MEDS: ENOXAPARIN 40 MG/0.4 ML SYRINGE SUBQ SCH (07:31)
[2018-09-12] MEDS: SACCHAROMYCES BOULARDII 250 MG CAPSULE PO SCH (08:11)
[2018-09-12] MEDS: CALCIUM CARBONATE CHEW 500 MG TABLET PO SCH (08:11)
[2018-09-12] MEDS: POLYETHYLENE GLYCOL 3350 17 GM PACKET PO SCH (08:11)
[2018-09-12 08:20] VITALS: BP 125/69
--- NOTE | 2018-09-12 11:55 | DISCHARGE SUMMARY ---
"Discharge Summary Admit Date: 09/09/18 Discharge Date: 09/12/18 Discharging Provider: Jagdish Valdes MD Primary Care Provider: Niesha DAWN Code Status: Attempt Resuscitation Condition at Discharge: Good Discharge Disposition: 01 Home, Self Care - DIAGNOSES Admission Diagnoses: 1. Diverticulitis of gastrointestinal tract 2. Perforated bowel 3. Diffuse leiomyomatosis of uterus Discharge Diagnoses with Status of Each Condition: 1. Diverticulitis of colon with perforation: Improving 2. Diffuse lipomatosis of uterus: Stable 3. Tobacco abuse: Stable 4. Hypocalcemia: Stable - HPI History of Present Illness: 58 yo female with no pmh presents with abdominal pain that started 1 day prior at 1800. Pain described as sharp pain in the Right Upper/Lower Quadrant and Right Flank. Pt states the pain was sudden onset and has been constant with exacerbation by bending over. Pt states her temperature was 102.4 last night with sustaining >102 today in her office. Patient states she has had one surgery at 28 for endometriosis, but has never experience similar abdominal pain. Patient states her last po was at 0800 today and had a normal bowel movement this morning. Pt states the pain started 1 day prior with resulting nausea. Patient denies vomiting, chest pain, cough, fever, recent illness, diarrhea, hematochezia, dysuria, hematemesis, change in urinary frequency, change in bowel movements. Pt does have recent travel to [facility] [address] abdomen reviewed with patient and she understands treatment plan. - CONSULTS | PROCEDURES Consultations: General Surgery Procedures: Plan for follow up in our clinic for colonoscopy about 1 month after discharge. - HOSPITAL COURSE Hospital Course: (1) Diverticulitis of colon with perforation Assessment/Plan: CT of abd/pelvis showed Acending colon diverticulitis with multiple diverticuli. CT of abd/pelvis showed 1 cc of air surrounding the diverticulitis, consistent with a small perforation. Appeared to be a contained perforation Surgery consulted and recommend continued medical management with follow up colonoscopy in 1 month. No need for surgical intervention given small contained perforation. Abdominal pain continued to improve during hospitalization Patients WBC remained normal and no fevers Continued iv hydration and Pip/Tazo iv antibiotic x 4 days Advanced diet to soft and patient which patient tolerated well She was discharged home in stable condition on 09/12/2018 with oral antibiotics ciprofloxacin and Flagyl. She will continue antibiotics for an additional 10 days to complete 14 days of antibiotics for treatment of diverticulitis. She will also continued on a soft diet during treatment. She will follow-up with surgery in 1 month for a colonoscopy She was told to return to the emergency department if she has increasing abdominal pain, fevers, chills or increased nausea. (2) Diffuse leiomyomatosis of uterus Assessment/Plan: CT of abd/pelvis showed extensive leiomyomata. This is a benign condition Stable currently. (3) Tobacco abuse Assessment/Plan: The patient uses 3-4 cigarettes/ month and declines a Nicotine patch. She also requested that we NOT SPEAK ABOUT HER SMOKING, WHILE any family or friends are in her room. She was counseled on the need to quit smoking and understands (4) Hypocalcemia. Replaced, stable - ALLERGIES Allergies/Adverse Reactions: Allergies Allergy/AdvReac Type Severity Reaction Status Date / Time erythromycin lactobionate * Allergy Unknown Verified 09/09/18 16:00 [From Erythrocin] - MEDICATIONS Home Medications: Ambulatory Orders Medication Instructions Recorded Confirmed Progesterone,Micronized 200 mg PO QPM 09/09/18 09/10/18 [Prometrium] Ciprofloxacin HCl [Cipro] 500 mg PO BID #20 tablet 09/11/18 Metronidazole [Flagyl] 500 mg PO QID #40 tablet 09/11/18 Saccharomyces Boulardii [Florastor] 250 mg PO BID #20 capsule 09/11/18 oxyCODONE [Roxicodone] 5 mg PO Q4HR PRN #30 tablet 09/11/18 - PHYSICAL EXAM AT DISCHARGE General Appearance: positive: No acute distress, Alert Eyes Bilateral: positive: Normal inspection, PERRL, EOMI, No lid inflammation, Conjunctivae nml, No scleral icterus ENT: positive: ENT inspection nml, Pharynx nml, No signs of dehydration. negative: Purulent nasal drainage, Pharyngeal erythema, Oral lesions Neck: positive: Nml inspection, Thyroid nml, No JVD, Trachea midline. negative: Lymphadenopathy (R), Lymphadenopathy (L), Stiff neck, Carotid bruit, Tracheal deviation Respiratory: positive: Chest non-tender, No respiratory distress, Breath sounds nml. negative: Wheezes, Rales, Rhonchi Cardiovascular: positive: Regular rate & rhythm, No murmur, No gallop Peripheral Pulses: positive: 2+ Abdomen: positive: Non-tender, No organomegaly, Nml bowel sounds, No distention. negative: Guarding, Rebound, Hepatomegaly Back: positive: Nml inspection. negative: CVA tenderness (R), CVA tenderness (L) Skin: positive: Color nml, No rash, Warm. negative: Cyanosis, Diaphoresis, Pallor, Skin rash Extremities: positive: Non-tender, Full ROM, Nml appearance, No pedal edema Neurologic/Psychiatric: positive: Oriented x3, CN's nml (2-12), Motor nml, Sensation nml, Mood/affect nml - LABS Result Diagrams: 09/12/18 05:00 09/12/18 05:00 Other Lab Results: Laboratory Results WBC 5.8 x10^3/uL (4.8-10.8) 09/12/18 05:00 RBC 3.70 10^6/uL (4.20-5.40) L 09/12/18 05:00 Hgb 11.0 g/dL (12.0-16.0) L 09/12/18 05:00 Hct 33.2 % (37.0-47.0) L 09/12/18 05:00 MCV 89.7 fL (81.0-99.0) 09/12/18 05:00 MCH 29.8 pg (27.0-31.0) 09/12/18 05:00 MCHC 33.2 g/dL (32.0-36.0) 09/12/18 05:00 RDW 13.6 % (12.0-15.0) 09/12/18 05:00 Plt Count 175 10^3/uL (130-450) 09/12/18 05:00 MPV 8.1 fL (7.9-10.8) 09/12/18 05:00 Neut # (Auto) 3.6 10^3/uL (1.5-6.6) 09/12/18 05:00 Lymph # (Auto) 1.6 10^3/uL (1.5-3.5) 09/12/18 05:00 [place] # (Auto) 0.4 10^3/uL (0.0-1.0) 09/12/18 05:00 Eos # (Auto) 0.2 10^3/uL (0.0-0.7) 09/12/18 05:00 Baso # (Auto) 0.0 10^3/uL (0.0-0.1) 09/12/18 05:00 Absolute Nucleated RBC 0.00 x10^3/uL 09/12/18 05:00 Nucleated RBC % 0.0 /100WBC 09/12/18 05:00 Sodium 134 mmol/L (135-145) L 09/12/18 05:00 Potassium 4.2 mmol/L (3.5-5.0) 09/12/18 05:00 Chloride 107 mmol/L (101-111) 09/12/18 05:00 Carbon Dioxide 22 mmol/L (21-32) 09/12/18 05:00 Anion Gap 5.0 (6-13) L 09/12/18 05:00 BUN 8 mg/dL (6-20) 09/12/18 05:00 Creatinine 0.6 mg/dL (0.4-1.0) 09/12/18 05:00 Estimated GFR (MDRD) 103 (>89) 09/12/18 05:00 Glucose 110 mg/dL (70-100) H 09/12/18 05:00 Calcium 8.3 mg/dL (8.5-10.3) L 09/12/18 05:00 Magnesium 2.0 mg/dL (1.7-2.8) 09/10/18 13:00 Total Bilirubin 0.8 mg/dL (0.2-1.0) 09/10/18 13:00 AST 13 IU/L (10-42) 09/10/18 13:00 ALT 11 IU/L (10-60) 09/10/18 13:00 Alkaline Phosphatase 33 IU/L (42-121) L 09/10/18 13:00 Total Protein 6.5 g/dL (6.7-8.2) L 09/10/18 13:00 Albumin 3.5 g/dL (3.2-5.5) 09/10/18 13:00 Globulin 3.0 g/dL (2.1-4.2) 09/10/18 13:00 Albumin/Globulin Ratio 1.2 (1.0-2.2) 09/10/18 13:00 Lipase 24 U/L (22-51) 09/09/18 16:47 Urine Color YELLOW 09/09/18 16:08 Urine Clarity CLEAR (CLEAR) 09/09/18 16:08 Urine pH 7.0 PH (5.0-7.5) 09/09/18 16:08 Ur Specific [place] <=1.005 (1.002-1.030) 09/09/18 16:08 Urine Protein NEGATIVE mg/dL (NEGATIVE) 09/09/18 16:08 Urine Glucose (UA) NEGATIVE mg/dL (NEGATIVE) 09/09/18 16:08 Urine Ketones NEGATIVE mg/dL (NEGATIVE) 09/09/18 16:08 Urine Occult Blood SMALL (NEGATIVE) H 09/09/18 16:08 Urine Nitrite NEGATIVE (NEGATIVE) 09/09/18 16:08 Urine Bilirubin NEGATIVE (NEGATIVE) 09/09/18 16:08 Urine Urobilinogen 0.2 (NORMAL) E.U./dL (NORMAL) 09/09/18 16:08 Ur Leukocyte Esterase NEGATIVE (NEGATIVE) 09/09/18 16:08 Urine RBC 6-10 /HPF (0-5) H 09/09/18 16:08 Urine WBC 4-5 /HPF (0-5) 09/09/18 16:08 Ur Squamous Epith Cells MANY Squamous (<= Few) H 09/09/18 16:08 Urine Bacteria Many /HPF (None Seen) H 09/09/18 16:08 Ur Microscopic Review INDICATED 09/09/18 16:08 Urine Culture Comments NOT INDICATED 09/09/18 16:08 - DIAGNOSTIC IMAGING Diagnostic Imaging Results: Final report reviewed Diagnostic Imaging Results Comments: Final Report PT NAME: LONNIE DOUGHERTY MR#: [id number] REG ER/ED AGE: 58 CI DT/TM: 09/09/18 PCP: : 1960 ATT: SEX: F ORD: Roxie Faustin DO EXAM: [id number] CT/ABPEW ([id number]) Reason: PAIN Procedure Date: 09/09/2018 Accession Number: [id number] / [id number] Procedure: CT - Abdomen/Pelvis W/ CPT Code: FULL RESULT: EXAM: CT ABDOMEN AND PELVIS WITH CONTRAST. EXAM DATE: 09/09/2018 05:53 PM. CLINICAL HISTORY: Right-sided abdominal pain and nausea since yesterday. COMPARISONS: None. TECHNIQUE: Routine helical CT imaging was performed through the abdomen and pelvis. IV contrast: 100 mL ISOVUE 300. Enteric contrast: No. Reconstructions: Coronal and sagittal. In accordance with CT protocol optimization, one or more of the following dose reduction techniques were utilized for this exam: automated exposure control, adjustment of mA and/or KV based on patient size, or use of iterative reconstructive technique. FINDINGS: Lung Bases: Unremarkable. Liver: Normal. No masses. Gallbladder/Bile Ducts: Unremarkable. Spleen: Normal. Pancreas: Normal. Adrenal Glands: Normal. Kidneys: Normal. No masses or hydronephrosis. Peritoneal Cavity/Bowel: Diverticula of the colon. Moderate wall thickening and several large inflamed diverticuli over an 8 cm segment involving the superior half of the ascending colon. Less than 1 cc free air seen in this region, sagittal image 66, coronal image 39. No extraluminal abscess. Marked amount of adjacent mesenteric and omental edema. Small amount of adjacent linear fluid. Large and small bowel normal caliber. The appendix is well visualized and normal. Pelvic Organs: Mildly enlarged uterus due to multiple leiomyomata. No free fluid nor adnexal mass lesions. No stones in the small caliber urinary bladder. Vasculature: No aneurysms or other significant abnormality. Bones: No significant abnormality. Other: None. IMPRESSION: 1. Abnormal ascending colon consistent with diverticulitis. Less than 1 cc of air adjacent to such indicating focal contained perforation. Full differential of the abnormal findings would also include colitis, pseudomembranous colitis, inflammatory bowel disease, ischemia, atypical for nonobstructing malignancy. 2. Enlarged leiomyomatous uterus. - FOLLOW UP Follow Up: Patient was admitted with acute diverticulitis with small perforation. She was seen by surgery who felt she could be managed medically with IV antibiotics and there was no need for surgery at this time. She was treated with IV antibiotics for 4 days and transition to oral antibiotics. Her pain was controlled and she remained hemodynamically stable with no leukocytosis. She will be continued on oral antibiotics with ciprofloxacin and Flagyl for an additional 10 days to complete 2 weeks of antibiotic treatment. She will follow-up with surgery in 1 month for a colonoscopy. Her diet was advanced to a soft diet while she was hospitalized which she tolerated well. She will continue a soft diet while she is on antibiotics. - TIME SPENT Time Spent in Discharge (Minutes): 45"
== END 2018-09-12 13:26 | disposition home or self-care (01) | DRG 392 ==
LOC: ED 15:54 → MS3 19:48
PROVIDERS: ADMIT Specialist; ATTEND Internal Medicine
DX: K57.20 Diverticulitis of large intestine with perforation and abscess without bleeding (principal); D25.9 Leiomyoma of uterus, unspecified; E83.51 Hypocalcemia; Z72.0 Tobacco use; Z79.899 Other long term (current) drug therapy
CPT/HCPCS: 36415; 74177; 80048; 80053; 81001; 81003; 83690; 83735; 85025; 87086; 96365; 99283; 99284; 99285

== ENCOUNTER 2018-09-21 14:32 | Emergency (ER) | payer BC ==
[2018-09-21 14:56] LABS: BASOPHILS # (AUTO) 0.1 10^3/uL (0.0-0.1); BASOPHILS % (AUTO) 1.2 %; EOSINOPHILS # (AUTO) 0.1 10^3/uL (0.0-0.7); EOSINOPHILS % (AUTO) 1.9 %; LYMPHOCYTES # (AUTO) 1.7 10^3/uL (1.5-3.5); LYMPHOCYTES % (AUTO) 27.1 %; MEAN CORPUSCULAR HEMOGLOBIN 29.8 pg (27.0-31.0); MEAN CORPUSCULAR HGB CONC 34.2 g/dL (32.0-36.0); MEAN CORPUSCULAR VOLUME 87.1 fL (81.0-99.0); MEAN PLATELET VOLUME 7.2 fL (7.9-10.8); MONOCYTES # (AUTO) 0.6 10^3/uL (0.0-1.0); MONOCYTES % (AUTO) 9.8 %; NEUTROPHILS # (AUTO) 3.8 10^3/uL (1.5-6.6); PLT - PLATELET COUNT 289 10^3/uL (130-450); RED BLOOD COUNT 4.37 10^6/uL (4.20-5.40); RED CELL DISTRIBUTION WIDTH 13.8 % (12.0-15.0); WHITE BLOOD COUNT 6.4 x10^3/uL (4.8-10.8)
[2018-09-21 15:11] LABS: ALBUMIN 4.2 g/dL (3.2-5.5); ALBUMIN/GLOBULIN RATIO 1.3 (1.0-2.2); BILIRUBIN,TOTAL 0.4 mg/dL (0.2-1.0); CALCIUM 8.6 mg/dL (8.5-10.3); CREATININE 1.5 mg/dL (0.4-1.0); TOTAL PROTEIN 7.5 g/dL (6.7-8.2)
[2018-09-21 15:39] LABS: BILIRUBIN,URINE NEGATIVE (NEGATIVE); GLUCOSE, URINE (UA) NEGATIVE (NEGATIVE); KETONES,URINE (UA) NEGATIVE (NEGATIVE); LEUKOCYTE ESTERASE, URINE NEGATIVE (NEGATIVE); NITRITE,URINE NEGATIVE (NEGATIVE); OCCULT BLOOD,URINE NEGATIVE (NEGATIVE); PH,URINE 6.5 PH (5.0-7.5); PROTEIN,URINE NEGATIVE (NEGATIVE); UROBILINOGEN,URINE 0.2 (NORMAL) E.U./dL (NORMAL)
[2018-09-21 15:43] LABS: CLARITY,URINE CLEAR (CLEAR)
--- NOTE | 2018-09-21 15:45 | ED Physician Documentation ---
PD HPI ABD PAIN - Stated complaint Stated Complaint: RT SIDE ABD PX - Chief complaint Chief Complaint: Abd Pain - History obtained from History obtained from: Patient - History of Present Illness Timing - onset: Other (Admit 12 days ago for diverticulitis with small perforation. Now with increased pain RLQ anjel with bending over. Still on cipro/flagyl.) Quality: Aching (declines pain medication) Review of Systems Ten Systems: 10 systems reviewed and negative Constitutional: denies: Fever, Chills GI: reports: Abdominal Pain. denies: Nausea, Vomiting : reports: Reviewed and negative Musculoskeletal: denies: Neck pain, Back pain Neurologic: denies: Generalized weakness, Focal weakness PD PAST MEDICAL HISTORY - Past Medical History Cardiovascular: None Respiratory: None Neuro: None, Other Endocrine/Autoimmune: None GI: None FINANCIAL SERVICES ASSISTANT: Endometriosis, Other : None HEENT: None Psych: None Musculoskeletal: None Derm: None - Past Surgical History Past Surgical History: Yes - Present Medications Home Medications: Ambulatory Orders Medication Instructions Recorded Confirmed RX: Progesterone,Micronized 200 mg PO QPM 09/09/18 09/10/18 [Prometrium] Ciprofloxacin HCl [Cipro] 500 mg PO BID #20 tablet 09/11/18 Metronidazole [Flagyl] 500 mg PO QID #40 tablet 09/11/18 RX: oxyCODONE [Roxicodone] 5 mg PO Q4HR PRN #30 tablet 09/11/18 Saccharomyces Boulardii [Florastor] 250 mg PO BID #20 capsule 09/11/18 Ciprofloxacin HCl [Cipro] 500 mg PO BID #10 tablet 09/21/18 Metronidazole [Flagyl] 500 mg PO TID #14 tablet 09/21/18 - Allergies Allergies/Adverse Reactions: Allergies Allergy/AdvReac Type Severity Reaction Status Date / Time erythromycin lactobionate * Allergy Unknown Verified 09/09/18 16:00 [From Erythrocin] - Social History Does the pt smoke?: No Smoking Status: Light tobacco smoker Does the pt drink ETOH?: Yes Does the pt have substance abuse?: No - Family History Family history: reports: Non contributory - Immunizations Immunizations are current?: Yes - POLST Patient has POLST: No POLST Status: Full Code PD ED PE NORMAL - Vitals Vital signs reviewed: Yes - General General: Alert and oriented X 3, No acute distress, Well developed/nourished - HEENT HEENT: PERRL, EOMI - Neck Neck: Supple, no meningeal sign, No bony TTP - Cardiac Cardiac: RRR, Other (subtle systolic mmr) - Respiratory Respiratory: No respiratory distress, Clear bilaterally - Abdomen Abdomen: Soft, Non tender - Back Back: No CVA TTP, No spinal TTP - Derm Derm: Normal color, Warm and dry - Extremities Extremities: No edema, No calf tenderness / cord - Neuro Neuro: Alert and oriented X 3, Normal speech - Psych Psych: Normal mood, Normal affect Results - Vitals Vitals: Vital Signs - 24 hr 09/21/18 09/21/18 14:36 17:33 Temperature 37.1 C 36.6 C Heart Rate 65 62 Respiratory 16 97 H Rate Blood Pressure 132/73 H 121/72 O2 Saturation 100 97 Oxygen O2 Source Room air - Labs Labs: Laboratory Tests 09/21/18 09/21/18 09/21/18 14:50 14:50 15:35 WBC 6.4 RBC 4.37 Hgb 13.0 Hct 38.1 MCV 87.1 MCH 29.8 MCHC 34.2 RDW 13.8 Plt Count 289 MPV 7.2 L Neut # (Auto) 3.8 Lymph # (Auto) 1.7 [place] # (Auto) 0.6 Eos # (Auto) 0.1 Baso # (Auto) 0.1 Absolute Nucleated RBC 0.00 Nucleated RBC % 0.0 Sodium 133 L Potassium 3.9 Chloride 104 Carbon Dioxide 23 Anion Gap 6.0 BUN 15 Creatinine 1.5 H Estimated GFR (MDRD) 36 L Glucose 128 H Calcium 8.6 Total Bilirubin 0.4 AST 26 ALT 19 Alkaline Phosphatase 37 L Total Protein 7.5 Albumin 4.2 Globulin 3.3 Albumin/Globulin Ratio 1.3 Lipase 28 Urine Color YELLOW Urine Clarity CLEAR Urine pH 6.5 Ur Specific [place] 1.010 Urine Protein NEGATIVE Urine Glucose (UA) NEGATIVE Urine Ketones NEGATIVE Urine Occult Blood NEGATIVE Urine Nitrite NEGATIVE Urine Bilirubin NEGATIVE Urine Urobilinogen 0.2 (NORMAL) Ur Leukocyte Esterase NEGATIVE Ur Microscopic Review NOT INDICATED Urine Culture Comments NOT INDICATED - Rads (name of study) Ct A/P Radiology: EMP read contemporaneously (Improving hepatic flexure diverticulitis without free air or abscess.) PD MEDICAL DECISION MAKING - ED course ED course: 58-year-old woman with known diverticulitis with small perforation presents with continued symptoms although declines pain medication and her exam is relatively unimpressive. Her white count is normal and the CT was repeated with improved findings. We will extend the course of her antibiotics and she has close follow-up with the surgeon. Departure - Departure Disposition: 01 Home, Self Care Clinical Impression: Diverticulitis of gastrointestinal tract Condition: Good Record reviewed to determine appropriate education?: Yes Instructions: ED Diverticulitis Follow-Up: Saran Burrows MD [Provider Admit Priv/Credential] - Tomorrow Prescriptions: Ciprofloxacin HCl [Cipro] 500 mg PO BID #10 tablet Metronidazole [Flagyl] 500 mg PO TID #14 tablet Discharge Date/Time: 09/21/18 17:40
[2018-09-21] MEDS ORDERED: SODIUM CHLORIDE 0.9% 1,000 ML IV ONE (15:48)
[2018-09-21] MEDS ORDERED: IOPAMIDOL-370 100 ML VIAL ONE (16:07)
--- NOTE | 2018-09-21 17:10 | CT Report ---
Reason: IV only, recheck perf diverticulitis, Procedure Date: 09/21/2018 Accession Number: [id number] / [id number] Procedure: CT - Abdomen/Pelvis W/ CPT Code: FULL RESULT: EXAM: CT ABDOMEN AND PELVIS EXAM DATE: 09/21/2018 04:50 PM. CLINICAL HISTORY: Follow-up perforated diverticulitis. COMPARISONS: ABDOMEN/PELVIS W/ 09/09/2018 5:53 PM. TECHNIQUE: Routine helical CT imaging was performed through the abdomen and pelvis. IV contrast: 80 cc of Optiray 320. Enteric contrast: No. Reconstructions: Coronal and sagittal. In accordance with CT protocol optimization, one or more of the following dose reduction techniques were utilized for this exam: automated exposure control, adjustment of mA and/or KV based on patient size, or use of iterative reconstructive technique. FINDINGS: Lung Bases: Unremarkable. Liver: Normal. No masses. Gallbladder/Bile Ducts: Unremarkable. Spleen: Normal. Pancreas: Normal. Adrenal Glands: Normal. Kidneys: Normal. No masses or hydronephrosis. Peritoneal Cavity/Bowel: Moderate diverticulosis. Wall thickening and fat stranding in the hepatic flexure is improving, with no extraluminal air or abscess. No free fluid, free air or adenopathy. No masses. The appendix is well visualized and normal. Pelvic Organs: Normal. The bladder and visualized pelvic organs are within normal limits. Vasculature: No aneurysms or other significant abnormality. Bones: Degenerative disk disease at L5-S1. Other: None. IMPRESSION: Improving hepatic flexure diverticulitis, with no abscess or extraluminal air. RADIA
[2018-09-21 17:35] VITALS: BP 121/72
[2018-09-21] MEDS ORDERED: IOVERSOL 320 100 ML VIAL IVP ONE (17:35)
== END 2018-09-21 17:40 | disposition home or self-care (01) ==
LOC: ED 14:32
DX: K57.30 Diverticulosis of large intestine without perforation or abscess without bleeding (principal); F17.200 Nicotine dependence, unspecified, uncomplicated
CPT/HCPCS: 36415; 74177; 80053; 81003; 83690; 85025; 96360; 99283; Q9967; 81001; 87086

== ENCOUNTER 2018-10-07 09:48 | Day surgery (SDC) | payer BC ==
[2018-10-07] MEDS ORDERED: LACTATED RINGERS 1,000 ML IV ONE (10:37)
[2018-10-07 10:47] LABS: CALCIUM 8.9 mg/dL (8.5-10.3); CREATININE 0.6 mg/dL (0.4-1.0)
[2018-10-07] MEDS ORDERED: fentaNYL 250 MCG/5 ML VIAL IVP ONE (12:00)
[2018-10-07] MEDS ORDERED: MIDAZOLAM 2 MG/2 ML VIAL IVP ONE (12:00)
[2018-10-07 12:36] VITALS: BP 134/76
== END 2018-10-07 09:49 | disposition home or self-care (01) ==
LOC: SDS 09:48
PROVIDERS: ATTEND Internal Medicine Gastroenterology
PROC: 0DJD8ZZ Inspection of Lower Intestinal Tract, Via Natural or Artificial Opening Endoscopic (ICD-10-PCS; principal; 2018-10-07 11:15)
DX: K57.30 Diverticulosis of large intestine without perforation or abscess without bleeding (principal); G47.30 Sleep apnea, unspecified; Z80.0 Family history of malignant neoplasm of digestive organs; Z87.891 Personal history of nicotine dependence
CPT/HCPCS: 45378; 80048; J3010; J7120

== ENCOUNTER 2019-02-25 15:59 | Outpatient (CLI) | payer BC ==
--- NOTE | 2019-02-27 16:12 | Ultrasound Report ---
Reason: VAGINAL BLEEDING, FIBROID Procedure Date: 02/25/2019 Accession Number: [id number] / [id number] Procedure: US - Pelvic Complete CPT Code: FULL RESULT: EXAM: PELVIC ULTRASOUND EXAM DATE: 02/25/2019 04:38 PM. CLINICAL HISTORY: History of fibroids, preoperative evaluation for hysterectomy. COMPARISON: ABDOMEN/PELVIS W09/21/2018 4:33 PM. TECHNIQUE: Realtime transabdominal pelvic scan performed to identify the uterus and adnexa and as an overview of other pelvic structures, (patient refused transvaginal imaging), with static image documentation. FINDINGS: Uterus: 11.0 x 5.7 x 6.5 cm, volume 214 cc. Anteverted position. Normal overall size and echotexture. Masses: Anterior fundal transmural fibroid with small submucosal component 5.1 x 3.6 x 4.7 cm. Endometrium: 3 mm. Partially obscured by overlying fibroid. No definite endometrial thickening or mass. Cervix: Suboptimally visualized. Right Ovary: 3.2 x 2.0 x 2.2 cm, volume 7.3 cc. Normal echotexture and blood flow. Left Ovary: 2.6 x 1.9 x 1.9 cm, volume 4.7 cc. Normal echotexture and blood flow. Free Fluid: None. Other: None. IMPRESSION: 1. 5.1 cm anterior transmural fibroid with small submucosal component. 2. Endometrium appears thin but is partially obscured from adjacent fibroid. RADIA
== END 2019-02-25 16:00 | disposition home or self-care (01) ==
LOC: DI 15:59
PROVIDERS: ATTEND Obstetrics & Gynecology
DX: D25.1 Intramural leiomyoma of uterus (principal); D25.0 Submucous leiomyoma of uterus
CPT/HCPCS: 36415; 76856; 85025

== ENCOUNTER 2019-02-25 16:38 | Outpatient (CLI) | payer BC ==
[2019-02-25 16:53] LABS: BASOPHILS # (AUTO) 0.1 10^3/uL (0.0-0.1); BASOPHILS % (AUTO) 0.9 %; EOSINOPHILS # (AUTO) 0.2 10^3/uL (0.0-0.7); EOSINOPHILS % (AUTO) 2.2 %; HGB - HEMOGLOBIN 13.2 g/dL (12.0-16.0); LYMPHOCYTES # (AUTO) 2.3 10^3/uL (1.5-3.5); LYMPHOCYTES % (AUTO) 32.9 %; MEAN CORPUSCULAR HEMOGLOBIN 29.1 pg (27.0-31.0); MEAN CORPUSCULAR HGB CONC 33.1 g/dL (32.0-36.0); MEAN CORPUSCULAR VOLUME 87.9 fL (81.0-99.0); MONOCYTES # (AUTO) 0.6 10^3/uL (0.0-1.0); MONOCYTES % (AUTO) 8.5 %; NEUTROPHILS # (AUTO) 3.8 10^3/uL (1.5-6.6); NEUTROPHILS % (AUTO) 55.5 %; PLT - PLATELET COUNT 235 10^3/uL (130-450); RED BLOOD COUNT 4.53 10^6/uL (4.20-5.40); RED CELL DISTRIBUTION WIDTH 13.9 % (12.0-15.0); WHITE BLOOD COUNT 6.9 x10^3/uL (4.8-10.8)
== END 2019-02-25 16:39 | disposition home or self-care (01) ==
LOC: LAB 16:38
PROVIDERS: ATTEND Obstetrics & Gynecology
DX: D21.9 Benign neoplasm of connective and other soft tissue, unspecified (principal); N93.9 Abnormal uterine and vaginal bleeding, unspecified
CPT/HCPCS: 85025

== ENCOUNTER 2019-03-17 10:13 | Emergency (ER) | payer BC ==
--- NOTE | 2019-03-17 11:01 | ED Physician Documentation ---
PD HPI ABD PAIN - Stated complaint Stated Complaint: RT LOW ABD PX - Chief complaint Chief Complaint: Abd Pain - History obtained from History obtained from: Patient - History of Present Illness Timing - onset: How many days ago (4) Timing - duration: Days (4) Timing - details: Still present Pain level now: 2 Quality: Sharp Location: RLQ Associated symptoms: Fever (low grade). No: Nausea, Vomiting, Dysuria Similar symptoms before: Diagnosis (Perforated diverticulitis.) - Additional information Additional information: The patient is a 58-year-old female who presents with right-sided abdominal pain that started 4 days ago and has persisted since that time. She describes it as a "pinching feeling." She denies nausea, vomiting, or dysuria. She noted a low-grade "fever" this morning, of 99 degrees. She has a history of similar episode in August 2018 when she was diagnosed with perforation of her ascending colon. Colonoscopy in September 2018 revealed multiple diverticula. 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 Review of Systems Constitutional: reports: Fever (low grade) Nose: denies: Congestion Throat: denies: Sore throat Cardiac: denies: Chest pain / pressure Respiratory: denies: Dyspnea, Cough GI: reports: Abdominal Pain. denies: Nausea, Vomiting, Diarrhea : denies: Dysuria Skin: denies: Rash Musculoskeletal: denies: Back pain Neurologic: denies: Focal weakness, Numbness, Headache PD PAST MEDICAL HISTORY - Past Medical History Cardiovascular: Other Respiratory: Sleep apnea Neuro: None, Other Endocrine/Autoimmune: None GI: Diverticulitis, Other STUDIO GRIP: Endometriosis, Other : None HEENT: None Psych: Panic attacks Musculoskeletal: None Derm: Rosacea - Past Surgical History Past Surgical History: Yes General: Colonoscopy /STUDIO GRIP: Other - Present Medications Home Medications: Ambulatory Orders Medication Instructions Recorded Confirmed Progesterone,Micronized 200 mg PO QPM 09/09/18 10/07/18 [Prometrium] Cholecalciferol [Vitamin D3] 5,000 unit PO DAILY 10/06/18 10/07/18 - Allergies Allergies/Adverse Reactions: Allergies Allergy/AdvReac Type Severity Reaction Status Date / Time erythromycin lactobionate * Allergy gastritis Verified 03/17/19 10:22 [From Erythrocin] - Social History Does the pt smoke?: No Smoking Status: Never smoker Does the pt drink ETOH?: Yes Does the pt have substance abuse?: No - Immunizations Immunizations are current?: Yes - POLST Patient has POLST: No POLST Status: Full Code PD ED PE NORMAL - Vitals Vital signs reviewed: Yes (normal) - General General: Alert and oriented X 3, Well developed/nourished - HEENT HEENT: Atraumatic, Moist mucous membranes, Pharynx benign - Neck Neck: Supple, no meningeal sign, No adenopathy - Cardiac Cardiac: RRR, No murmur - Respiratory Respiratory: No respiratory distress, Clear bilaterally - Abdomen Abdomen: Normal bowel sounds, Soft, Other (Mild tenderness to palpation in the right lower quadrant, without rebound tenderness or guarding.) - Back Back: No CVA TTP - Derm Derm: No rash - Extremities Extremities: No edema, No calf tenderness / cord - Neuro Neuro: Alert and oriented X 3, No motor deficit, Normal speech Results - Vitals Vitals: Oxygen O2 Source Room air - Labs Labs: Laboratory Tests 03/17/19 03/17/19 03/17/19 10:40 10:40 11:11 WBC 6.6 RBC 4.22 Hgb 12.4 Hct 37.1 MCV 87.8 MCH 29.3 MCHC 33.4 RDW 14.0 Plt Count 230 MPV 7.9 Neut # (Auto) 4.5 Lymph # (Auto) 1.3 L [place] # (Auto) 0.5 Eos # (Auto) 0.1 Baso # (Auto) 0.1 Absolute Nucleated RBC 0.00 Nucleated RBC % 0.1 Sodium Potassium Chloride Carbon Dioxide Anion Gap BUN Creatinine Estimated GFR (MDRD) Glucose Calcium Total Bilirubin AST ALT Alkaline Phosphatase Total Protein Albumin Globulin Albumin/Globulin Ratio Lipase Urine Color STRAW Urine Clarity CLEAR Urine pH 5.5 Ur Specific [place] <=1.005 <=1.005 Urine Protein NEGATIVE Urine Glucose (UA) NEGATIVE Urine Ketones NEGATIVE Urine Occult Blood NEGATIVE Urine Nitrite NEGATIVE Urine Bilirubin NEGATIVE Urine Urobilinogen 0.2 (NORMAL) Ur Leukocyte Esterase TRACE H Urine RBC 0-5 Urine WBC 0-3 Ur Squamous Epith Cells MANY Squamous H Urine Bacteria Few Ur Microscopic Review INDICATED Urine Culture Comments NOT INDICATED Urine HCG, Qual NEGATIVE 03/17/19 11:13 WBC RBC Hgb Hct MCV MCH MCHC RDW Plt Count MPV Neut # (Auto) Lymph # (Auto) [place] # (Auto) Eos # (Auto) Baso # (Auto) Absolute Nucleated RBC Nucleated RBC % Sodium 136 Potassium 3.9 Chloride 108 Carbon Dioxide 21 Anion Gap 7.0 BUN 11 Creatinine 0.6 Estimated GFR (MDRD) 103 Glucose 110 H Calcium 9.0 Total Bilirubin 0.6 AST 26 ALT 19 Alkaline Phosphatase 35 L Total Protein 7.4 Albumin 4.4 Globulin 3.0 Albumin/Globulin Ratio 1.5 Lipase 25 Urine Color Urine Clarity Urine pH Ur Specific [place] Urine Protein Urine Glucose (UA) Urine Ketones Urine Occult Blood Urine Nitrite Urine Bilirubin Urine Urobilinogen Ur Leukocyte Esterase Urine RBC Urine WBC Ur Squamous Epith Cells Urine Bacteria Ur Microscopic Review Urine Culture Comments Urine HCG, Qual - Rads (name of study) CT abd/pelvis Radiology: Prelim report reviewed, EMP read contemporaneously, See rad report (No diverticulitis or appendicitis is detected. If clinically indicated, consider pelvic ultrasound for characterization of the right adnexal finding.) PD MEDICAL DECISION MAKING - ED course Complexity details: reviewed old records, reviewed results, re-evaluated patient, considered differential, d/w patient, d/w travel consultant (Radiologist) ED course: The patient's presentation is most consistent with pain from right ovarian cyst. CT scan of her abdomen and pelvis reveals no evidence of diverticulitis or appendicitis. There is no free fluid noted in the pelvis. Her CBC is normal with a white count of 6.6. Urinalysis is normal and test is negative. I discussed with the patient and her female health promotion specialist the results of the work- up, symptomatic treatment and outpatient follow-up, as well as potentially worrisome signs or symptoms that should prompt reevaluation in the emergency department. Departure - Departure Disposition: 01 Home, Self Care Clinical Impression: Ovarian cyst, right Abdominal pain Qualifiers: Abdominal location: right lower quadrant Qualified Code(s): R10.31 - Right lower quadrant pain Condition: Stable Instructions: ED Abdominal Pain Unkn Cause, ED Cyst Ovarian Follow-Up: Marquise Flood ND [Primary Care Provider] - Comments: He can use Tylenol or ibuprofen if needed for discomfort. You can discontinue antibiotic therapy. Follow-up with your primary physician within 1 to 2 weeks if not completely resolved. Return to the emergency department if you develop increasing abdominal pain, increasing fever, persistent vomiting, or otherwise worsening symptoms. Forms: Activity restrictions Discharge Date/Time: 03/17/19 13:18
[2019-03-17] MEDS ORDERED: IOVERSOL 320 100 ML VIAL IVP ONE ×2 (11:08→12:15)
[2019-03-17 11:18] LABS: BASOPHILS # (AUTO) 0.1 10^3/uL (0.0-0.1); BASOPHILS % (AUTO) 1.7 %; EOSINOPHILS # (AUTO) 0.1 10^3/uL (0.0-0.7); EOSINOPHILS % (AUTO) 1.8 %; HGB - HEMOGLOBIN 12.4 g/dL (12.0-16.0); LYMPHOCYTES # (AUTO) 1.3 10^3/uL (1.5-3.5); LYMPHOCYTES % (AUTO) 19.9 %; MEAN CORPUSCULAR HEMOGLOBIN 29.3 pg (27.0-31.0); MEAN CORPUSCULAR HGB CONC 33.4 g/dL (32.0-36.0); MEAN CORPUSCULAR VOLUME 87.8 fL (81.0-99.0); MEAN PLATELET VOLUME 7.9 fL (7.9-10.8); MONOCYTES # (AUTO) 0.5 10^3/uL (0.0-1.0); MONOCYTES % (AUTO) 7.7 %; NEUTROPHILS # (AUTO) 4.5 10^3/uL (1.5-6.6); NEUTROPHILS % (AUTO) 68.9 %; PLT - PLATELET COUNT 230 10^3/uL (130-450); RED BLOOD COUNT 4.22 10^6/uL (4.20-5.40); WHITE BLOOD COUNT 6.6 x10^3/uL (4.8-10.8)
[2019-03-17 11:49] LABS: BILIRUBIN,URINE NEGATIVE (NEGATIVE); CLARITY,URINE CLEAR (CLEAR); GLUCOSE, URINE (UA) NEGATIVE (NEGATIVE); KETONES,URINE (UA) NEGATIVE (NEGATIVE); LEUKOCYTE ESTERASE, URINE TRACE (NEGATIVE); NITRITE,URINE NEGATIVE (NEGATIVE); OCCULT BLOOD,URINE NEGATIVE (NEGATIVE); PH,URINE 5.5 PH (5.0-7.5); PROTEIN,URINE NEGATIVE (NEGATIVE); UROBILINOGEN,URINE 0.2 (NORMAL) E.U./dL (NORMAL)
[2019-03-17 11:53] LABS: HCG UR QUAL NEGATIVE
[2019-03-17 11:54] LABS: ALBUMIN 4.4 g/dL (3.2-5.5); ALBUMIN/GLOBULIN RATIO 1.5 (1.0-2.2); BILIRUBIN,TOTAL 0.6 mg/dL (0.2-1.0); CREATININE 0.6 mg/dL (0.4-1.0); TOTAL PROTEIN 7.4 g/dL (6.7-8.2)
[2019-03-17 12:00] LABS: RBC,URINE 0-5 /HPF (0-5); SQUAMOUS EPITHELIAL CELL,UR MANY Squamous (<= Few)
[2019-03-17 12:01] LABS: BACTERIA,URINE Few /HPF (None Seen)
[2019-03-17 12:19] VITALS: BP 117/68
--- NOTE | 2019-03-17 12:45 | CT Report ---
Reason: right sided abdominal pain; h/o perforated diverti Procedure Date: 03/17/2019 Accession Number: [id number] / [id number] Procedure: CT - Abdomen/Pelvis W CPT Code: FULL RESULT: EXAM: CT ABDOMEN AND PELVIS EXAM DATE: 03/17/2019 12:14 PM. CLINICAL HISTORY: Right-sided abdominal pain; history of perforated diverticulitis. COMPARISONS: ABDOMEN/PELVIS W/ 09/21/2018 4:33 PM. TECHNIQUE: Routine helical CT imaging was performed through the abdomen and pelvis. IV contrast: Optiray 320 100 mL. Enteric contrast: No. Reconstructions: Coronal and sagittal. In accordance with CT protocol optimization, one or more of the following dose reduction techniques were utilized for this exam: automated exposure control, adjustment of mA and/or KV based on patient size, or use of iterative reconstructive technique. FINDINGS: There is essentially pancolonic diverticulosis. The liver, gallbladder, adrenal glands, kidneys, spleen and pancreas are unremarkable. There is no bowel obstruction, free fluid or free air. There is no lymphadenopathy. The appendix is normal. Right adnexal region demonstrates a 3.1 x 1.9 cm hypodense lesion, possibly a dominant follicle in the premenopausal patient. The uterus appears heterogeneous. IMPRESSION: No diverticulitis or appendicitis is detected. If clinically indicated, consider pelvic ultrasound for characterization of the right adnexal finding. RADIA
== END 2019-03-17 13:18 | disposition home or self-care (01) ==
LOC: ED 10:13
DX: N83.201 Unspecified ovarian cyst, right side (principal); R10.31 Right lower quadrant pain; Z87.19 Personal history of other diseases of the digestive system
CPT/HCPCS: 36415; 74177; 80053; 81001; 81025; 83690; 85025; 99283; Q9967; 81003; 87086

== ENCOUNTER 2019-05-05 16:28 | Outpatient (CLI) | payer BC ==
[2019-05-05 17:07] LABS: BASOPHILS % (AUTO) 0.5 %; EOSINOPHILS # (AUTO) 0.1 10^3/uL (0.0-0.7); EOSINOPHILS % (AUTO) 1.3 %; HGB - HEMOGLOBIN 13.1 g/dL (12.0-16.0); LYMPHOCYTES # (AUTO) 2.4 10^3/uL (1.5-3.5); LYMPHOCYTES % (AUTO) 32.1 %; MEAN CORPUSCULAR HEMOGLOBIN 28.7 pg (27.0-31.0); MEAN CORPUSCULAR VOLUME 89.5 fL (81.0-99.0); MEAN PLATELET VOLUME 9.8 fL (7.9-10.8); MONOCYTES # (AUTO) 0.8 10^3/uL (0.0-1.0); MONOCYTES % (AUTO) 10.1 %; NEUTROPHILS # (AUTO) 4.1 10^3/uL (1.5-6.6); NEUTROPHILS % (AUTO) 55.6 %; PLT - PLATELET COUNT 220 10^3/uL (130-450); RED BLOOD COUNT 4.57 10^6/uL (4.20-5.40); RED CELL DISTRIBUTION WIDTH 13.1 % (12.0-15.0); WHITE BLOOD COUNT 7.4 x10^3/uL (4.8-10.8)
[2019-05-05 17:11] LABS: BILIRUBIN,URINE NEGATIVE (NEGATIVE); GLUCOSE, URINE (UA) NEGATIVE (NEGATIVE); KETONES,URINE (UA) NEGATIVE (NEGATIVE); LEUKOCYTE ESTERASE, URINE TRACE (NEGATIVE); NITRITE,URINE NEGATIVE (NEGATIVE); OCCULT BLOOD,URINE NEGATIVE (NEGATIVE); PROTEIN,URINE NEGATIVE (NEGATIVE); UROBILINOGEN,URINE 0.2 (NORMAL) E.U./dL (NORMAL)
[2019-05-05 17:21] LABS: ALBUMIN 4.4 g/dL (3.2-5.5); ALBUMIN/GLOBULIN RATIO 1.3 (1.0-2.2); BILIRUBIN,TOTAL 0.5 mg/dL (0.2-1.0); CALCIUM 9.5 mg/dL (8.5-10.3); CREATININE 0.7 mg/dL (0.4-1.0); TOTAL PROTEIN 7.9 g/dL (6.7-8.2)
[2019-05-05 17:23] LABS: BACTERIA,URINE None Seen /HPF (None Seen); CLARITY,URINE CLEAR (CLEAR); RBC,URINE None Seen /HPF (0-5); SQUAMOUS EPITHELIAL CELL,UR FEW Squamous (<= Few)
== END 2019-05-05 16:29 | disposition home or self-care (01) ==
LOC: RT 16:28
PROVIDERS: ATTEND Obstetrics & Gynecology
DX: Z01.818 Encounter for other preprocedural examination (principal)
CPT/HCPCS: 36415; 80053; 81001; 85025; 87086; 93005

== ENCOUNTER 2022-11-21 14:03 | Emergency (ER) | payer BC ==
[2022-11-21] MEDS ORDERED: ONDANSETRON 4 MG/2 ML VIAL IVP STA (14:24)
[2022-11-21] MEDS ORDERED: SODIUM CHLORIDE 0.9% 1,000 ML IV STA (14:24)
[2022-11-21] MEDS ORDERED: HYDROmorphone 1 MG/ML CARPUJECT IVP STA (14:24)
[2022-11-21 14:41] LABS: BASOPHILS % (AUTO) 0.5 %; EOSINOPHILS # (AUTO) 0.1 10^3/uL (0.0-0.7); EOSINOPHILS % (AUTO) 0.6 %; HCT - HEMATOCRIT 39.8 % (37.0-47.0); HGB - HEMOGLOBIN 13.2 g/dL (12.0-16.0); LYMPHOCYTES # (AUTO) 1.1 10^3/uL (1.5-3.5); LYMPHOCYTES % (AUTO) 13.4 %; MEAN CORPUSCULAR HEMOGLOBIN 28.8 pg (27.0-31.0); MEAN CORPUSCULAR HGB CONC 33.2 g/dL (32.0-36.0); MEAN CORPUSCULAR VOLUME 86.9 fL (81.0-99.0); MEAN PLATELET VOLUME 9.3 fL (7.9-10.8); MONOCYTES # (AUTO) 0.5 10^3/uL (0.0-1.0); MONOCYTES % (AUTO) 5.9 %; NEUTROPHILS # (AUTO) 6.6 10^3/uL (1.5-6.6); NEUTROPHILS % (AUTO) 79.4 %; PLT - PLATELET COUNT 221 10^3/uL (130-450); RED BLOOD COUNT 4.58 10^6/uL (4.20-5.40); RED CELL DISTRIBUTION WIDTH 12.7 % (12.0-15.0); WHITE BLOOD COUNT 8.3 x10^3/uL (4.8-10.8)
[2022-11-21 14:50] LABS: ALBUMIN 4.4 g/dL (3.2-5.5); ALBUMIN/GLOBULIN RATIO 1.4 (1.0-2.2); BILIRUBIN,TOTAL 1.2 mg/dL (0.2-1.0); CALCIUM 9.3 mg/dL (8.5-10.3); CREATININE 0.8 mg/dL (0.4-1.0); POTASSIUM 4.3 mmol/L (3.5-5.0); TOTAL PROTEIN 7.5 g/dL (6.7-8.2)
--- NOTE | 2022-11-21 14:52 | ED Physician Documentation ---
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 She states it felt somewhat like when she has had episodes of GERD in the past, but when she tried taking some medicine for GERD, she quickly escalated to nausea and some upper abdominal pain and ended up vomiting. The patient states she is felt the pain spread into her lower substernal area but in the back pain has intensified, and she is here because she wants to make sure she is not having a heart attack. The patient has no history of known cardiac issues other than a mitral valve prolapse for which she had an echo some years ago. This was felt to be benign at that time. The patient denies any history of diabetes, high blood pressure, hyperlipidemia, or smoking. No family history of coronary artery disease except may be her grandparents. The patient states that she did not have any shortness of breath, diaphoresis, or lightheadedness with the symptoms today. No radiation to anywhere outside the chest and back. She denies any recent history of dyspnea or chest/back pain with exertion. She has never had a stress test. She states her back pain still getting worse and she still does feel somewhat nauseated. No other complaints at this time. No lower extremity edema or pain. Review of Systems Constitutional: reports: Reviewed and negative Eyes: reports: Reviewed and negative Ears: reports: Reviewed and negative Nose: reports: Reviewed and negative Throat: reports: Reviewed and negative Cardiac: reports: Chest pain / pressure Respiratory: reports: Reviewed and negative GI: reports: Abdominal Pain, Nausea, Vomiting : reports: Reviewed and negative Skin: reports: Reviewed and negative Musculoskeletal: reports: Back pain Neurologic: reports: Reviewed and negative Psychiatric: reports: Reviewed and negative Endocrine: reports: Reviewed and negative Immunocompromised: reports: Reviewed and negative PD PAST MEDICAL HISTORY - Past Medical History Cardiovascular: Other Respiratory: Sleep apnea Neuro: None, Other Endocrine/Autoimmune: None GI: Diverticulitis, 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: Endometriosis, Other : None HEENT: None Psych: Panic attacks Musculoskeletal: None Derm: Rosacea - Past Surgical History Past Surgical History: Yes General: Colonoscopy /DIE MAKER ELECTRONIC: Other - Present Medications Home Medications: Ambulatory Orders Medication Instructions Recorded Confirmed Progesterone, Micronized 200 mg PO QPM 09/09/18 10/07/18 [Prometrium] Cholecalciferol [Vitamin D3] 5,000 unit PO DAILY 10/06/18 10/07/18 Ondansetron Odt [Zofran] 4 mg TL Q6H PRN #10 tablet 11/21/22 - Allergies Allergies/Adverse Reactions: Allergies Allergy/AdvReac Type Severity Reaction Status Date / Time ampicillin Allergy Unknown Verified 11/21/22 14:18 erythromycin lactobionate * Allergy gastritis Verified 03/17/19 10:22 [From Erythrocin] - Social History Does the pt smoke?: No Smoking Status: Never smoker Does the pt drink ETOH?: Yes Does the pt have substance abuse?: No - Immunizations Immunizations are current?: Yes - POLST Patient has POLST: No POLST Status: Full Code PD ED PE NORMAL - Vitals Vital signs reviewed: Yes - General General: Alert and oriented X 3, No acute distress, Well developed/nourished - HEENT HEENT: Atraumatic, PERRL, EOMI, Moist mucous membranes - Neck Neck: Supple, no meningeal sign - Cardiac Cardiac: RRR, No murmur, Strong equal pulses - Respiratory Respiratory: No respiratory distress, Clear bilaterally - Abdomen Abdomen: Soft, Non distended, Other (Mild tenderness in the superiormost epigastric region, no rebound or guarding) - Back Back: No spinal TTP, Other (No tenderness to palpation of the intrascapular musculature.) - Derm Derm: Normal color, Warm and dry, No rash - Extremities Extremities: No deformity, No edema, No calf tenderness / cord - Neuro Neuro: Alert and oriented X 3, 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, Normal speech - Psych Psych: Normal mood, Normal affect Results - Vitals Vitals: Oxygen O2 Source Room air - EKG (time done) 1413 Rate: Rate (enter#) (47) Rhythm: Sinus bradycardia [place]: Normal Intervals: Normal AR QRS: Normal Ischemia: Normal ST segments Compare to prior EKG: Old EKG unavailable Computer interpretation: Agree with computer - Labs Labs: Laboratory Tests 11/21/22 11/21/22 11/21/22 14:32 14:32 14:32 WBC 8.3 RBC 4.58 Hgb 13.2 Hct 39.8 MCV 86.9 MCH 28.8 MCHC 33.2 RDW 12.7 Plt Count 221 MPV 9.3 Neut # (Auto) 6.6 Lymph # (Auto) 1.1 L [place] # (Auto) 0.5 Eos # (Auto) 0.1 Baso # (Auto) 0.0 Absolute Nucleated RBC 0.00 Nucleated RBC % 0.0 Sodium 135 Potassium 4.3 Chloride 100 L Carbon Dioxide 23 Anion Gap 12.0 BUN 18 Creatinine 0.8 Estimated GFR (MDRD) 73 L Glucose 130 H Calcium 9.3 Total Bilirubin 1.2 H AST 37 ALT 26 Alkaline Phosphatase 40 L Troponin I High Sens < 2.3 L Total Protein 7.5 Albumin 4.4 Globulin 3.1 Albumin/Globulin Ratio 1.4 Lipase 31 11/21/22 16:01 WBC RBC Hgb Hct MCV MCH MCHC RDW Plt Count MPV Neut # (Auto) Lymph # (Auto) [place] # (Auto) Eos # (Auto) Baso # (Auto) Absolute Nucleated RBC Nucleated RBC % Sodium Potassium Chloride Carbon Dioxide Anion Gap BUN Creatinine Estimated GFR (MDRD) Glucose Calcium Total Bilirubin AST ALT Alkaline Phosphatase Troponin I High Sens < 2.3 L Total Protein Albumin Globulin Albumin/Globulin Ratio Lipase - Rads (name of study) chest XR Radiology: Final report received, See rad report (nad) PD Medical Decision Making - ED course Complexity details: reviewed results, re-evaluated patient, considered differential, d/w patient ED course: The patient was well-appearing, but given her age and reported symptoms, I felt she should be worked up for possible emergent causes of her chest pain. She was hemodynamically stable here. EKG was ordered and reviewed by me and unremarkable other than for sinus bradycardia. The patient was also worked up with a CBC, ER abdominal panel, troponin, and chest x-ray, all of which I ordered and reviewed. All were unremarkable. The patient had requested some symptomatic treatment and she was given Dilaudid and Zofran, as well as IV fluid. The patient reported feeling much better. Her repeat troponin, which was ordered and reviewed by me, was also negative and I felt she was stable for discharge home. We have discussed the need to follow-up with her primary care physician to discuss potentially having a stress test done.We have also discussed the usual indications for return. Departure - Departure Disposition: Home, Self Care Clinical Impression: Chest pain Qualifiers: Chest pain type: other chest pain Qualified Code(s): R07.89 - Other chest pain Back pain Qualifiers: Back pain location: thoracic back pain Chronicity: acute Back pain laterality: bilateral Qualified Code(s): M54.6 - Pain in thoracic spine Vomiting Qualifiers: Vomiting type: bilious vomiting Nausea presence: with nausea Qualified Code(s): R11.14 - Bilious vomiting Condition: Stable Instructions: ED Neck Back Pain General, ED Nausea Vomiting Prescriptions: Ondansetron Odt [Zofran] 4 mg TL Q6H PRN #10 tablet PRN Reason: Nausea / Vomiting Comments: Your labs, EKG, and chest x-ray all look good. There is no evidence of an emergent cause of your symptoms today. Its not clear exactly what caused you to be nauseated and have upper abdominal and back pain, but it is entirely possible that he had some esophageal spasm which could cause all of these thing s. Your nausea could be due to intolerance of something you ate, or to one of the many viruses that are going around right now causing such symptoms. If you develop recurrent symptoms like this, to good follow-up tests to speak with your primary doctor about would be an ultrasound of your gallbladder to look for gallstones, and a stress test to evaluate for any underlying cardiac disease. At this point in time, there is no evidence of a "heart attack", aortic pathology, or pancreatitis, and you are stable for discharge. A prescription for your Zofran has been electronically transmitted to [facility] in [place]. Discharge Date/Time: 11/21/22 17:18
--- NOTE | 2022-11-21 14:55 | XRAY Report ---
PROCEDURE: Chest 1 View X-Ray INDICATIONS: Chest pain TECHNIQUE: One view of the chest was acquired. COMPARISON: None. FINDINGS: Surgical changes and devices: None. Lungs and pleura: No pleural effusions or pneumothorax. Lungs are clear. Mediastinum: Mediastinal contours appear normal. Heart size is normal. Bones and chest wall: No suspicious bony lesions. Overlying soft tissues appear unremarkable. IMPRESSION: No acute finding. Reviewed by: Jaziel Paula MD on 11/21/2022 2:54 PM PST Approved by: Jaziel Paula MD on 11/21/2022 2:54 PM [facility] Station ID: [id number]
[2022-11-21 15:56] VITALS: BP 128/65
== END 2022-11-21 17:18 | disposition home or self-care (01) ==
LOC: ED 14:03
DX: R07.89 Other chest pain (principal); M54.6 Pain in thoracic spine; R11.14 Bilious vomiting
CPT/HCPCS: 36415; 71045; 80053; 83690; 84484; 85025; 93005; 96361; 96374; 99284; J1170